=== PATIENT | male | born 1945 | race Caucasian/White ===

== ENCOUNTER → 2016-12-21 | Outpatient (CLI) | payer BC, OTHER ==
[~2016-12-21] MED LIST: ASPCH81 PO; AZIT250T PO; LISI-725 PO; MILK300C PO; MISCCAP80 PO; OPTIRAY 320 IV PRN; PSYL55.43 PO
--- NOTE | 2016-12-21 09:24 | DIAGNOSTIC IMAGING REPORT ---
Study: Electronically signed by: Seth Gagnon M.D. 12/21/2016 9:22 AM Dictated Date/Time: 12/21/2016 9:12 AM SOFT TISSUE NECK WITH. CT. CLINICAL HISTORY: LYMPHOMA lymphoma TECHNIQUE: Transaxial acquisition with intravenous contrast enhancement. Multi axial reformatted images. COMPARISON STUDY: PET CT scan dated 04/15/2015 FINDINGS: Findings consistent with recurrent adenopathy. Major salivary glands including parotid glands appear unremarkable. A service marker is placed over a clinically palpable nodule in the left soft tissue neck region. Deep to this location is a 2 cm node. Several smaller nodes including progressive nodes in the left substance moderate mastoid region are present. Additional nodes measure up to 1.4 cm. Major salivary glands remain unremarkable. Several smaller low cervical nodes are present. These are also somewhat progressive compared to the prior exam and measures to 1.4 cm in the left supraclavicular region. Bulky adenopathy in the right cervical chain is not identified. Major salivary glands again are unremarkable. Glottic and subglottic regions are unremarkable. Study: CT soft tissue neck. IMPRESSION: 1. Findings consistent with recurrent or progressive adenopathy of the left cervical chain. 2. Deep to the area of clinical palpable palpable nodularity is a 2 cm lymph node. 3. Progressive adenopathy is seen throughout the remainder of the left cervical chain. 4. No significant right cervical adenopathy.
== END | disposition home or self-care (01) ==
LOC: C.CTS 08:47
PROVIDERS: ATTEND Internal Medicine Hematology & Oncology
DX: C82.23 Follicular lymphoma grade III, unspecified, intra-abdominal lymph nodes (principal)

== ENCOUNTER → 2017-01-11 | Outpatient (CLI) | payer BC, OTHER ==
[~2017-01-11] MED LIST changes: -OPTIRAY 320 IV PRN
--- NOTE | 2017-01-11 10:07 | DIAGNOSTIC IMAGING REPORT ---
PET/CT SKULL-THIGH HISTORY:71 years Malepatient presents with follicular non-Hodgkin's lymphoma. This is a follow-up study with prior examination dated 04/15/2015 which showed no evidence for active disease. Recent CT soft tissue neck showed new cervical chain adenopathy suggesting recurrent or progressive disease. COMPARISON: PET CT 04/15/2015 TECHNIQUE: The patient was injected with 154 mCi of F-18 fluorodeoxyglucose (FDG) and an emission scan was performed from the skull vertex to the toes. Noncontrast CT was performed for attenuation correction and anatomic localization. The blood glucose level was 89 mg/dl. FINDINGS: HEAD AND NECK: There are multiple enlarged cervical chain lymph nodes again seen, left greater than right. Several of these nodes are FDG avid. For example, a large level 2 lymph node on the left measuring 2.3 x 1.7 cm on axial image 43 has SUV max of 12.4. An additional level 2 lymph node at the same level measures 1.7 x 1.2 cm with SUV max of 9.5. There are additional smaller bilateral level 2, 3 and 5 lymph nodes which are also hypermetabolic but not significantly enlarged by CT size criteria. CHEST: Large conglomerate right hilar adenopathy measuring up to approximately 2.8 x 1.7 cm on image 102 of the axial series is markedly hypermetabolic with SUV max of 8.8. Mildly enlarged subcarinal lymph node measuring 1.4 x 1.0 cm demonstrates SUV max of 3.7. Nonspecific 9 x 5 mm right axillary lymph node which demonstrates uptake slightly above that of blood pool with SUV max of 1.9 is seen on image 97 of the axial series. Periesophageal lymph nodes are seen measuring up to 1.4 x 2.6 cm with SUV max of 5.0 cm image 116 of the axial series. ABDOMEN AND PELVIS: Mildly large lymph nodes adjacent to the celiac trunk are seen measuring up to 1.6 x 1.1 cm with SUV max of 5.9. Bulky retroperitoneal and mesenteric adenopathy is also noted with SUV max of over 10. Index infrarenal aortic lumbar adenopathy is seen measuring up to 3.6 x 1.7 cm on image 179 of the axial series. Pelvic sidewall and iliac chain adenopathy is also hypermetabolic. SUV max of the spleen measures 3.6 which is greater than that of the liver at 2.7 which suggests lymphomatous involvement. MUSCULOSKELETAL SYSTEM AND EXTREMITIES: There is a physiologic distribution of activity within the bone marrow, with no hypermetabolic foci. ADDITIONAL CT FINDINGS: The appendix appears normal. Noninflamed colonic diverticuli are seen. There is moderate degree of atherosclerotic plaquing of the aorta. Multilevel degenerative changes are seen throughout the spine. IMPRESSION: 1. Extensive bulky hypermetabolic adenopathy throughout the neck, chest, abdomen and pelvis compatible with progressive disease. 2. Increased FDG activity throughout the spleen is slightly above that of activity within the liver suggesting lymphomatous involvement. 3. No osseous disease identified. 4. Additional incidental CT findings as above. The above report was generated using voice recognition software. It may contain grammatical, syntax or spelling errors. Electronically signed by: Aaron Arenas M.D. 01/11/2017 10:05 AM Dictated Date/Time: 01/11/2017 9:43 AM
== END | disposition home or self-care (01) ==
LOC: C.PET 06:45
PROVIDERS: ATTEND Internal Medicine Hematology & Oncology
DX: C82.23 Follicular lymphoma grade III, unspecified, intra-abdominal lymph nodes (principal); I70.0 Atherosclerosis of aorta

== ENCOUNTER 2017-01-28 08:23 | Emergency (ER) | payer BC, OTHER ==
[~2017-01-28] VITALS: Ht 180.3 cm; Wt 97.7 kg
[~2017-01-28 08:23] MED LIST changes: -AZIT250T PO; -MILK300C PO; -MISCCAP80 PO
[2017-01-28 08:28] VITALS: TEMP 36.8; Ht 180.3 cm; Wt 97.7 kg
[2017-01-28] MEDS ORDERED: XYLOCAINE 1%/SOD BICARB 20 ML VIAL INFIL ONE (08:33)
[2017-01-28] MEDS ORDERED: DIPHTHERIA/TETANUS/PERTUSSIS 0.5 ML SYR/VIAL IM. ONE (08:45)
--- NOTE | 2017-01-28 09:00 | EMERGENCY ROOM VISIT NOTE ---
ED Visit Note First contact with patient: 08:30 CHIEF COMPLAINT: Left index Finger laceration HISTORY OF PRESENT ILLNESS: This patient cut the left index finger on on a tin can last evening at approximately 8 PM. The patient states he washed out the wound and bandaged it. When he took the bandage off this morning it was still bleeding therefore he came to the emergency room. The patient denies any numbness and tingling in the finger. He states he is able to bend the finger. The patient is just on a baby aspirin daily but denies any other blood thinners. The patient tetanus status is unknown. REVIEW OF SYSTEMS: 6 system review was performed and was negative unless stated otherwise in history of present illness. PMH: The patient is healthy; lymphoma SOCIAL HISTORY: Patient lives with his .. PHYSICAL EXAM: Vital Signs: Were reviewed Reviewed Nurse's notes. GENERAL: 71- year-old white male appears in no acute distress. MENTAL Status: Alert and oriented 3. LEFT INDEX FINGER: There is a 1.5 cm laceration at the base of the proximal phalanx. This is on the palmar aspect. There is active bleeding. The edges gape apart with traction. There is no foreign material in the wound and it looks clean. There is no bleeding. No deep structures such as tendons or nerves are seen in the base of the wound. Extension of the finger is full and strong. EMERGENCY DEPARTMENT COURSE: The patient was given Adacel. The patient's EMR medication list were reviewed. Wound Repair: Complexity: Basic. Verbal consent was obtained after the risks and benefits were explained, including but not limited to bleeding, scarring, infection, pain, and bone/joint /nerve damage. The skin was prepped with betadine and a sterile field set. The wound was anesthetized with 1.0 ml of 1% buffered lidocaine. With direct pressure the bleeding subsided. Copious irrigation was performed using sterile saline. The wound was explored for foreign bodies and none found. Debridement was not performed. The wound edges were approximated using 4-0 Ethilon with 3 simple interrupted sutures. Hemostasis and excellent approximation was achieved. Antibacterial ointment and a sterile dressing applied. Detailed wound care instructions and signs and symptoms of infection reviewed with the patient. No complications and the patient tolerated the procedure well. DIAGNOSIS: 1.5 cm left hand laceration DISCHARGE INSTRUCTIONS & TREATMENT: Keep wound clean and dry. No water on the area for 12-24 hrs then no soaking until sutures removed. Do not allow any crusting or dried blood to accumulate on sutures. If this occurs, use a 1:1 solution of hydrogen peroxide/water on a Q-tip to clean the wound. Use an antibiotic ointment for 3-4 days, then let wound dry. Suture removal in 8 days. Follow up sooner for any signs of infection (increasing redness, swelling , drainage). Ice and elevate for swelling and pain. Tylenol 650 mg every 6 hrs for pain. Problem List Medical Problems: (1) DLBCL (diffuse large B cell lymphoma) Status: Chronic (2) Hypogammaglobulinemia Status: Chronic (3) Screening PSA (prostate specific antigen) Status: Chronic Current/Historical Medications Scheduled Aspirin (Aspirin Tab-Chewable *), 1 TAB PO DAILY Lisinopril (Zestril), 20 MG PO DAILY Psyllium (Metamucil Powder), 1 PACK PO DAILY Allergies Coded Allergies: No Known Allergies (Verified , `, 01/28/17) Vital Signs Date Time Temp Pulse Resp B/P (MAP) Pulse Ox O2 Delivery O2 Flow Rate FiO2 01/28/17 08:28 36.8 80 18 163/87 96 Room Air Medications Administered Medications (Trade) Dose Ordered Sig/Michael Route Start Time Stop Time Status Last Admin Dose Admin Lidocaine HCl (Buffered Lidocaine 1% Inj) 20 ml STK-MED ONCE INFIL 01/28/17 08:33 01/28/17 08:34 DC 01/28/17 08:33 20 ML Diphtheria/ Pertussis/Tetanus Vacc (Adacel Inj) 0.5 ml ONCE ONCE IM. 01/28/17 08:45 01/28/17 08:46 DC 01/28/17 08:44 0.5 ML Departure Information Referrals Juan Plunkett D.O. (PCP) Patient Instructions My [facility]
[2017-01-28] MEDS ORDERED: AZIT250T PO (09:11)
[2017-01-28] MEDS ORDERED: MISCCAP80 PO (09:12)
[2017-01-28] MEDS ORDERED: MILK300C PO (09:13)
[2017-01-28 09:22] VITALS: BP 140/80; PULSE 63; O2SAT 96
== END 2017-01-28 09:22 | disposition home or self-care (01) ==
LOC: C.EDB 08:24 → C.EDA 09:22
DX: S61.211A Laceration without foreign body of left index finger without damage to nail, initial encounter (principal); W26.8XXA Contact with other sharp object(s), not elsewhere classified, initial encounter; Z85.72 Personal history of non-Hodgkin lymphomas; D80.1 Nonfamilial hypogammaglobulinemia; Z79.82 Long term (current) use of aspirin; Z79.899 Other long term (current) drug therapy

== ENCOUNTER → 2017-07-21 | Outpatient (CLI) | payer OTHER, BC ==
[~2017-07-21] MED LIST changes: +AZIT250T PO; +MILK300C PO; +MISCCAP80 PO; +OPTIRAY 320 IV PRN
--- NOTE | 2017-07-21 11:18 | DIAGNOSTIC IMAGING REPORT ---
CHEST CT WITH CONTRAST CT DOSE: HISTORY: LYMPHOMA TECHNIQUE: Multiaxial CT images of the chest were performed following the intravenous administration of contrast. A dose lowering technique was utilized adhering to the principles of ALARA. COMPARISON: PET CT 01/11/2017. FINDINGS: The mediastinal, hilar, and axillary lymphadenopathy has essentially resolved in the interval. There are few subcentimeter distal periesophageal lymph nodes remaining the largest measuring 5 mm. And 1.4 cm hypodense lesion within the right hepatic lobe. This is likely benign. Hepatic steatosis. The spleen and adrenal glands are unremarkable. The mediastinal vascular structures are within normal limits. No pleural or pericardial effusions. No suspicious lytic or blastic osseous lesions. Small focal density within the base of the lingula likely represents atelectasis or scarring. This remains unchanged compared to the 2010 examination. Stable benign 4 mm nodule within the right middle lobe on image 154. No new focal lung consolidations to suggest pneumonia. IMPRESSION: The mediastinal, hilar, and axillary lymphadenopathy has essentially resolved in the interval. Electronically signed by: Pedrito Niño M.D. 07/21/2017 11:16 AM Dictated Date/Time: 07/21/2017 11:02 AM
--- NOTE | 2017-07-21 11:20 | DIAGNOSTIC IMAGING REPORT ---
SOFT TISSUE NECK WITH CLINICAL HISTORY: LYMPHOMA TECHNIQUE: Transaxial acquisition. Multi axial reformatted images. COMPARISON STUDY: 12/21/2016 FINDINGS: Considerable improvement compared to the prior study. The bulk of the left cervical adenopathy is either resolved in are considerably. Reduced in terms of size. Previously described 2 cm palpable nodule has diminished to 7 mm. A substernocleidomastoid nodule measuring worse 1.4 cm on the prior study has diminished to 5 mm. Current study shows no significant cervical adenopathy with all nodes identified less than 7 mm. Major vascular structures the neck including parotid and submandibular glands are unremarkable. There is no significant right-sided cervical adenopathy. IMPRESSION: 1. Considerable improvement in this examination compared to the prior study. 2. Bulky adenopathy of the left cervical chain has resolved completely or diminished in size by 75% or more. 3. Current examination shows no significant residual nodularity /adenopathy. The above report was generated using voice recognition software. It may contain grammatical, syntax or spelling errors. Electronically signed by: Seth Gagnon M.D. 07/21/2017 11:18 AM Dictated Date/Time: 07/21/2017 11:11 AM
== END | disposition home or self-care (01) ==
LOC: C.CTS 10:11
PROVIDERS: ATTEND Internal Medicine Hematology & Oncology
DX: C82.23 Follicular lymphoma grade III, unspecified, intra-abdominal lymph nodes (principal)

== ENCOUNTER → 2017-08-30 | Outpatient (CLI) | payer OTHER, BC ==
[~2017-08-30] MED LIST changes: -OPTIRAY 320 IV PRN
--- NOTE | 2017-08-30 12:36 | DIAGNOSTIC IMAGING REPORT ---
CHEST 2 VIEWS ROUTINE CLINICAL HISTORY: R05 COUGH COMPARISON STUDY: 05/07/2016 FINDINGS: The cardiac and mediastinal contours are normal. There is no evidence of focal pulmonary consolidation. There is no evidence of failure. No pleural effusions are visualized.[ There is stable linear scar/atelectatic change at the left base. IMPRESSION: No active disease in the chest. Electronically signed by: Zi Monzon M.D. 08/30/2017 12:35 PM Dictated Date/Time: 08/30/2017 12:34 PM
[2017-08-30 13:17] LABS: BASO % 0.4 %; BASO ABS # 0.02 K/uL (0-0.2); EOS % 4.3 %; EOS ABS # 0.24 K/uL (0-0.5); HEMATOCRIT 42.3 % (42-52); HEMOGLOBIN 15.1 g/dL (14.0-18.0); IG# 0.04 K/uL (0.00-0.02); LYMPH % 4.2 %; LYMPH ABS # 0.23 K/uL (1.2-3.4); MEAN CELL VOLUME 89.1 fL (80-100); MEAN CORPUSCULAR HEMOGLOBIN 31.8 pg (25-34); MEAN CORPUSCULAR HGB CONC 35.7 g/dl (32-36); MEAN PLATELET VOLUME 9.1 fL (7.4-10.4); MONO % 11.2 %; MONO ABS # 0.62 K/uL (0.11-0.59); NEUT % 79.2 %; NEUT ABS # 4.38 K/uL (1.4-6.5); PLATELET COUNT 194 K/uL (130-400); RED CELL DISTRIBUTION WIDTH CV 13.2 % (11.5-14.5); RED CELL DISTRIBUTION WIDTH SD 42.8 fL (36.4-46.3); WHITE BLOOD COUNT 5.53 K/uL (4.8-10.8)
[2017-08-30 13:52] LABS: BLOOD UREA NITROGEN 11 mg/dl (7-18); CALCIUM 9.1 mg/dl (8.5-10.1); CARBON DIOXIDE 26 mmol/L (21-32); CREATININE 1.13 mg/dl (0.60-1.40); GLUCOSE 113 mg/dl (70-99); POTASSIUM 3.8 mmol/L (3.5-5.1); SODIUM 136 mmol/L (136-145)
[2017-08-30 14:04] LABS: INFLUENZA A PCR Neg for Influ A (NEG); INFLUENZA B PCR Neg for Influ B (NEG)
== END | disposition home or self-care (01) ==
LOC: C.RAD1850 12:21
PROVIDERS: ATTEND Physician Assistant
DX: R05 Cough (principal)

== ENCOUNTER → 2017-08-30 | Outpatient (CLI) | payer OTHER, BC ==
[~2017-08-30] MED LIST changes: +OPTIRAY 320 IV PRN
--- NOTE | 2017-08-30 16:54 | DIAGNOSTIC IMAGING REPORT ---
CT ANGIOGRAM OF THE CHEST CLINICAL HISTORY: Dyspnea. COMPARISON STUDY: Chest CT scans dated 07/21/2017 and 06/24/2010. Chest x-ray dated 08/30/2017. TECHNIQUE: Following the IV administration of 97 cc of Optiray 320, CT angiogram of the chest was performed from the upper abdomen to the thoracic inlet utilizing the pulmonary embolus protocol. Images are reviewed in the axial, sagittal, and coronal planes. 3-D MIPS images are created and assessed. IV contrast was administered without complication. A dose lowering technique was utilized adhering to the principles of ALARA. CT DOSE: 556.71 mGy.cm FINDINGS: Thyroid: Imaged portions of the thyroid gland are normal in size and attenuation. Thoracic aorta: There is mild atherosclerotic calcification of the thoracic aorta, which is normal in caliber and demonstrates standard 3-vessel arch anatomy. No dissection is seen. Pulmonary vasculature: The pulmonary trunk is normal in caliber. There are no filling defects identified in main, lobar, or segmental pulmonary branches to suggest pulmonary embolus. Heart: The heart is normal in size and configuration, and without pericardial effusion. Lungs and pleural spaces: There is no lobar consolidation or pleural effusion. There are numerous foci of tree-in-bud nodularity scattered throughout both lungs with minimal associated groundglass change. The appearance is consistent with an infectious/inflammatory pneumonitis. The trachea and central airways are clear. A 4 mm right middle lobe pulmonary nodule is seen on image #96. This is unchanged dating back to 2009 and of doubtful significance. Mediastinum: There is no mediastinal lymphadenopathy. Chloe: Clear. Axillae: There is no axillary lymphadenopathy. Upper abdomen: There is a small hiatal hernia. Partially visualized upper abdominal viscera is within normal limits. Skeletal structures: The skeletal structures are osteopenic. No lytic or blastic bony lesions are seen. IMPRESSION: 1. There is no evidence of pulmonary embolus in the main, lobar, or segmental pulmonary arteries. 2. There are numerous foci of tree-in-bud nodularity scattered throughout both lungs with faint groundglass change. This is new from 07/21/2017 and likely represents an infectious/inflammatory pneumonitis. Clinical correlation will be required. 3-4 month follow-up chest CT is recommended to document resolution. 3. No lymphadenopathy is seen in the thorax. 4. Additional findings as above. Electronically signed by: Blaine Elaine M.D. 08/30/2017 4:53 PM Dictated Date/Time: 08/30/2017 4:47 PM
== END | disposition home or self-care (01) ==
LOC: C.CTS 16:15
PROVIDERS: ATTEND Physician Assistant
DX: R91.8 Other nonspecific abnormal finding of lung field (principal); R06.02 Shortness of breath

== ENCOUNTER → 2017-09-10 | Outpatient (CLI) | payer OTHER, BC ==
[~2017-09-10] MED LIST changes: -OPTIRAY 320 IV PRN
== END | disposition home or self-care (01) ==
LOC: C.LAB1850 11:31
PROVIDERS: ATTEND Physician Assistant
DX: C85.90 Non-Hodgkin lymphoma, unspecified, unspecified site (principal)

== ENCOUNTER 2017-09-24 13:49 | Emergency (ER) | payer OTHER, BC ==
[~2017-09-24] VITALS: Ht 177.8 cm; Wt 97.0 kg
[2017-09-24 13:53] VITALS: TEMP 36.8; Ht 177.8 cm; Wt 97.0 kg
[2017-09-24] MEDS ORDERED: SODIUM CHLORIDE 0.9% 1000ML 1,000 ML IV STA (14:07)
--- NOTE | 2017-09-24 14:15 | EMERGENCY ROOM VISIT NOTE ---
History Report prepared by Omar: Renee Patterson Under the Supervision of: Dr. Ricardo Davison M.D. 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 He states he recently started waking up around 0200 in the morning with chills and a fever of around 100 along with a persistent and dry cough. He notes the fever goes down to a normal temperature around 1200 typically. He notes this morning he woke up with an abnormally low temperature of 97.5. The patient reports he has had 6 months of chemotherapy for Non-Hodgkin lymphoma. Dr. Salinas Dolan, [facility], is his chemotherapy doctor. He notes the day after his last chemo treatment, he developed bronchitis. His doctor, Tegan Hand with [facility]mon[facility], prescribed him 2 rounds of abx. The first round was Augmentin and steroids and the second round added doxycycline and steroids. 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 A total of ten systems were reviewed and were otherwise negative. Past Medical & Surgical Medical Problems: (1) DLBCL (diffuse large B cell lymphoma) (2) Hypogammaglobulinemia (3) Screening PSA (prostate specific antigen) Family History No pertinent family history Social History Smoking Status: Never Smoker Marital Status: Occupation Status: employed Current/Historical Medications Scheduled Aspirin (Aspirin Ec), 81 MG PO DAILY Azithromycin (Zithromax), 250 MG PO QAM Budesonide/Formoterol Fumarate (Symbicort 160/4.5 Inhaler ), 2 PUFFS INH BID Cetirizine (Zyrtec), 10 MG PO DAILY Fluticasone Propionate (Nasal) (Flonase Allergy Relief), 2 SPRAYS KAREEM DAILY Ibuprofen Tab (Advil), 400-600 MG PO Q6H Lisinopril (Zestril), 20 MG PO QAM Moxifloxacin Hcl (Avelox), 1 TAB PO DAILY Probiotic Product (Probiotic), 1 CAP PO QAM Scheduled PRN Benzonatate (Tessalon Perles), 100 MG PO TID PRN for Cough Dextromethorphan-Guaifenesin (Mucinex Dm), 1 TAB PO Q12 PRN for Nasal Congestion Allergies Coded Allergies: No Known Allergies (Verified , `, 09/24/17) Physical Exam Vital Signs Date Time Temp Pulse Resp B/P (MAP) Pulse Ox O2 Delivery O2 Flow Rate FiO2 09/24/17 17:13 88 18 128/68 94 09/24/17 15:55 80 18 133/81 96 Room Air 09/24/17 13:53 36.8 113 18 150/86 94 Room Air Physical Exam Physical Exam GENERAL: He is oriented to person, place, and time. he appears well-developed and well-nourished. He does not appear distressed. ____ HENT: Exam performed. Head: Normocephalic and atraumatic. Right Ear: External ear normal. No mastoid tenderness. Left Ear: External ear normal. No mastoid tenderness. Mouth/Throat: The oropharynx is clear and moist. No trismus in the jaw. No dental abscesses or uvula swelling. No oropharyngeal exudate or tonsillar abscesses. ____ EYES: Conjunctivae and EOM are normal. Pupils are equal, round, and reactive to light. Right eye exhibits no discharge. Left eye exhibits no discharge. No scleral icterus. ____ NECK: Normal range of motion. Neck supple. No JVD present. No spinous process tenderness present. No carotid bruit present. No rigidity. No tracheal deviation and normal range of motion present. No Brudzinski's sign and no Kernig 's sign noted. ____ CV: Normal rate, regular rhythm, normal heart sounds and intact distal pulses. There is no peripheral edema. Palpable radial pulses bue. ____ PULM/CHEST: Effort normal and breath sounds normal. No respiratory distress. No stridor. He has no wheezes. he has no rales. Chest Wall: He exhibits no tenderness. ____ ABD: The abdomen is soft. Bowel sounds are normal. He has no distension. No mass is present. There is no tenderness. There is no rebound, no guarding, no Lama's sign and no tenderness at McBurney's point. Rovsig negative MUSC/SKEL: Normal range of motion. There is no peripheral edema, tenderness or deformity. LYMPH: No cervical adenopathy. ____ NEURO: He is alert and oriented to person, place, and time. He has normal strength. No cranial nerve deficit or sensory deficit. Coordination and gait normal. GCS eye subscore is 4. GCS verbal subscore is 5. GCS motor subscore is 6. Cerebellar tests wnl. ____ SKIN: Skin is warm and dry. He is not diaphoretic. ____ PSYCH: He has a normal mood and affect. His behavior is normal. Judgment and thought content normal. ____ Medical Decision & Procedures ER Provider Diagnostic Interpretation: Radiology results as stated below per my review and radiologist interpretation: CHEST 2 VIEWS ROUTINE CLINICAL HISTORY: 72 years-old Male presenting with chills fever cough r/o pneumonia on chemo. TECHNIQUE: PA and lateral views of the chest were obtained. COMPARISON: 08/30/2017. FINDINGS: Atherosclerosis of the aortic arch. Cardiac silhouette normal in size. Prominent lung markings. No focal opacity. No pleural effusion or pneumothorax. Osseous structures normal. Upper abdomen normal. IMPRESSION: 1. Nonspecific prominence of lung markings. No focal infiltrate to suggest pneumonia. Electronically signed by: Conor Cunningham M.D. 09/24/2017 3:21 PM Dictated Date/Time: 09/24/2017 3:19 PM Laboratory Results 09/24/17 14:35 Red Blood Count 4.58, Mean Corpuscular Volume 87.3, Mean Corpuscular Hemoglobin 30.8, Mean Corpuscular Hemoglobin Concent 35.3, Mean Platelet Volume 9.2, Neutrophils (%) (Auto) 69.6, Lymphocytes (%) (Auto) 18.4, Monocytes (%) (Auto) 9.3, Eosinophils (%) (Auto) 1.5, Basophils (%) (Auto) 0.4, Neutrophils # (Auto) 3.60, Lymphocytes # (Auto) 0.95, Monocytes # (Auto) 0.48, Eosinophils # (Auto) 0.08, Basophils # (Auto) 0.02 09/24/17 14:35 Test 09/24/17 14:35 09/24/17 15:05 White Blood Count 5.17 K/uL (4.8-10.8) Red Blood Count 4.58 M/uL (4.7-6.1) Hemoglobin 14.1 g/dL (14.0-18.0) Hematocrit 40.0 % (42-52) Mean Corpuscular Volume 87.3 fL (80-100) Mean Corpuscular Hemoglobin 30.8 pg (25-34) Mean Corpuscular Hemoglobin Concent 35.3 g/dl (32-36) Platelet Count 177 K/uL (130-400) Mean Platelet Volume 9.2 fL (7.4-10.4) Neutrophils (%) (Auto) 69.6 % Lymphocytes (%) (Auto) 18.4 % Monocytes (%) (Auto) 9.3 % Eosinophils (%) (Auto) 1.5 % Basophils (%) (Auto) 0.4 % Neutrophils # (Auto) 3.60 K/uL (1.4-6.5) Lymphocytes # (Auto) 0.95 K/uL (1.2-3.4) Monocytes # (Auto) 0.48 K/uL (0.11-0.59) Eosinophils # (Auto) 0.08 K/uL (0-0.5) Basophils # (Auto) 0.02 K/uL (0-0.2) RDW Standard Deviation 41.7 fL (36.4-46.3) RDW Coefficient of Variation 13.0 % (11.5-14.5) Immature Granulocyte % (Auto) 0.8 % Immature Granulocyte # (Auto) 0.04 K/uL (0.00-0.02) Anion Gap 7.0 mmol/L (3-11) Est Creatinine Clear Calc Drug Dose 76.9 ml/min Estimated GFR () 86.2 Estimated GFR (Non- 74.3 BUN/Creatinine Ratio 16.4 (10-20) Lactic Acid Level 0.9 mmol/L (0.4-2.0) Calcium Level 9.0 mg/dl (8.5-10.1) Total Bilirubin 0.8 mg/dl (0.2-1) Direct Bilirubin 0.2 mg/dl (0-0.2) Aspartate Amino Transf (AST/SGOT) 29 U/L (15-37) Alanine Aminotransferase (ALT/SGPT) 32 U/L (12-78) Alkaline Phosphatase 80 U/L (45-117) Total Protein 6.6 gm/dl (6.4-8.2) Albumin 3.4 gm/dl (3.4-5.0) Lipase 102 U/L (73-393) Influenza Type A Antigen Neg for Influ A (NEG) Influenza Type B Antigen Neg for Influ B (NEG) Laboratory results reviewed by me Medications Administered Medications (Trade) Dose Ordered Sig/Michael Route Start Time Stop Time Status Last Admin Dose Admin Sodium Chloride 1,000 ml @ 999 mls/hr Q1H1M STAT IV 09/24/17 14:07 09/24/17 15:07 DC 09/24/17 14:40 999 MLS/HR ECG Per My Interpretation Indication: other (bronchitis) Rate (beats per minute): 105 Rhythm: sinus tachycardia Findings: other (pr, qr and qrs intervals within normal limits, left ventricular hypertrophy present, no st elevation or depression ) ED Course 1406: The patient was evaluated in room B3. A complete history and physical exam was performed. EMR reviewed. Pt had a chest x ray and CTA of chest on August 2017 and they were both negative. 1407: Sodium Chloride 1000 ml @ 999 mls/hr IV 1628: Vital signs stable. Labs and imaging within normal limits. Discussed with [facility] pulmonology cardiology nurse practitioner who agreed patient could be started on Tessalon Perles and Avelox given his ongoing chemotherapy treatments. Plan of care discussed with patient and questions answered. The patient was given both verbal and printed discharge instructions. The patient verbalized understanding and ability to comply. The patient is to seek outpatient follow up as noted in the discharge instructions. The patient verbalized understanding and ability to comply. The patient is discharged in stable condition. The patient was instructed to return for worsening symptoms. Medical Decision Vital signs stable. Labs and imaging within normal limits. Discussed with [facility] pulmonology cardiology nurse practitioner who agreed patient could be started on Tessalon Perles and Avelox given his ongoing chemotherapy treatments. Plan of care discussed with patient and questions answered. The patient was given both verbal and printed discharge instructions. The patient verbalized understanding and ability to comply. The patient is to seek outpatient follow up as noted in the discharge instructions. The patient verbalized understanding and ability to comply. The patient is discharged in stable condition. The patient was instructed to return for worsening symptoms. Medication Reconcilliation Current Medication List: was personally reviewed by me Blood Pressure Screening Patient's blood pressure: Elevated blood pressure Consults Time Called: 162 Consulting Physician: Dr. Heath Returned Call: [phone] He agreed to try a different treatment method for the patient even though he is on chemotherapy. Impression Primary Impression: Cough Additional Impression: Bronchitis Scribe Attestation The scribe's documentation has been prepared under my direction and personally reviewed by me in its entirety. I confirm that the note above accurately reflects all work, treatment, procedures, and medical decision making performed by me. The chart was completed utilizing [employer] voice recognition software. Grammatical errors, random word insertions, pronoun errors, and incomplete sentences are an occasional consequence of this system due to software limitations, ambient noise, and hardware issues. Any formal questions or concerns about the content, text, or information contained within the body of this dictation should be directly addressed to the physician for clarification. Departure Information Dispostion Home / Self-Care Prescriptions Benzonatate (TESSALON PERLES) 100 Mg Cap 100 MG PO TID Y for Cough, #30 CAP Prov: Ricardo Davison M.D. 09/24/17 Moxifloxacin Hcl (AVELOX) 400 Mg Tab 1 TAB PO DAILY for 7 Days, #7 TAB Prov: Ricardo Davison M.D. 09/24/17 Referrals Tegan Arias PA-C (PCP) Forms HOME CARE DOCUMENTATION FORM, IMPORTANT VISIT INFORMATION Patient Instructions [facility] Problem Qualifiers
[2017-09-24 14:58] LABS: BASO % 0.4 %; BASO ABS # 0.02 K/uL (0-0.2); EOS % 1.5 %; EOS ABS # 0.08 K/uL (0-0.5); HEMOGLOBIN 14.1 g/dL (14.0-18.0); IG# 0.04 K/uL (0.00-0.02); LYMPH % 18.4 %; LYMPH ABS # 0.95 K/uL (1.2-3.4); MEAN CELL VOLUME 87.3 fL (80-100); MEAN CORPUSCULAR HEMOGLOBIN 30.8 pg (25-34); MEAN CORPUSCULAR HGB CONC 35.3 g/dl (32-36); MEAN PLATELET VOLUME 9.2 fL (7.4-10.4); MONO % 9.3 %; MONO ABS # 0.48 K/uL (0.11-0.59); NEUT % 69.6 %; PLATELET COUNT 177 K/uL (130-400); RED CELL DISTRIBUTION WIDTH SD 41.7 fL (36.4-46.3); WHITE BLOOD COUNT 5.17 K/uL (4.8-10.8)
[2017-09-24 15:11] LABS: ALBUMIN 3.4 gm/dl (3.4-5.0); POTASSIUM 3.8 mmol/L (3.5-5.1)
[2017-09-24 15:14] LABS: TOTAL PROTEIN 6.6 gm/dl (6.4-8.2)
--- NOTE | 2017-09-24 15:22 | DIAGNOSTIC IMAGING REPORT ---
CHEST 2 VIEWS ROUTINE CLINICAL HISTORY: 72 years-old Male presenting with chills fever cough r/o pneumonia on chemo. TECHNIQUE: PA and lateral views of the chest were obtained. COMPARISON: 08/30/2017. FINDINGS: Atherosclerosis of the aortic arch. Cardiac silhouette normal in size. Prominent lung markings. No focal opacity. No pleural effusion or pneumothorax. Osseous structures normal. Upper abdomen normal. IMPRESSION: 1. Nonspecific prominence of lung markings. No focal infiltrate to suggest pneumonia. Electronically signed by: Conor Cunningham M.D. 09/24/2017 3:21 PM Dictated Date/Time: 09/24/2017 3:19 PM
[2017-09-24] MEDS ORDERED: CETI10TA84 PO (16:00)
[2017-09-24] MEDS ORDERED: IBUP-103 PO (16:00)
[2017-09-24] MEDS ORDERED: DEXT30TA7 PO (16:00)
[2017-09-24] MEDS ORDERED: FLUT0.15 NAE (16:00)
[2017-09-24] MEDS ORDERED: ASPI81TA28 PO (16:00)
[2017-09-24] MEDS ORDERED: SYMIN160 INH (16:00)
[2017-09-24 16:01] LABS: INFLUENZA B ANTIGEN Neg for Influ B (NEG)
[2017-09-24] MEDS ORDERED: MOXI400T2 PO (17:00)
[2017-09-24] MEDS ORDERED: BENZ100C18 PO (17:01)
[2017-09-24 17:13] VITALS: BP 128/68; PULSE 88; O2SAT 94
== END 2017-09-24 17:15 | disposition home or self-care (01) ==
LOC: C.EDB 13:51
DX: J40 Bronchitis, not specified as acute or chronic (principal); R68.0 Hypothermia, not associated with low environmental temperature; C83.30 Diffuse large B-cell lymphoma, unspecified site; Z79.82 Long term (current) use of aspirin

== ENCOUNTER 2017-10-01 10:55 | Inpatient (IN) | payer OTHER, BC ==
[~2017-10-01] VITALS: Ht 177.8 cm; Wt 97.0 kg
[~2017-10-01 10:55] MED LIST changes: -ASPCH81 PO; +ASPI81TA28 PO; +BENZ100C18 PO; +CETI10TA84 PO; +DEXT30TA7 PO; +FLUT0.15 NAE; +IBUP-103 PO; -MILK300C PO; +MOXI400T2 PO; -PSYL55.43 PO; +SYMIN160 INH
[2017-10-01] MEDS ORDERED: SODIUM CHLORIDE 0.9% 500ML 500 ML IV STA (11:15)
[2017-10-01] MEDS ORDERED: FAMOTIDINE 20MG/5ML IV PUSH IV STA (11:17)
[2017-10-01] MEDS ORDERED: EpINEphrine INJ 1MG/ML AMP 1 MG/ML AMP IM STA (11:26)
[2017-10-01] MEDS ORDERED: OPTIRAY 320 IV PRN (11:30)
--- NOTE | 2017-10-01 11:41 | DIAGNOSTIC IMAGING REPORT ---
CHEST ONE VIEW PORTABLE CLINICAL HISTORY: Hypoxia. COMPARISON STUDY: Chest CT August 30, 2017 and chest radiograph September 24, 2017. FINDINGS: There is no pneumothorax or pleural effusion. Cardiomediastinal silhouette is normal. There is been interval development of bibasilar opacities and interstitial thickening. IMPRESSION: Interval development of bibasilar opacities and interstitial thickening which may reflect pneumonia or pulmonary edema. Electronically signed by: Fernie Arce M.D. 10/01/2017 11:40 AM Dictated Date/Time: 10/01/2017 11:38 AM
[2017-10-01 12:03] LABS: BASO % 0.1 %; BASO ABS # 0.01 K/uL (0-0.2); EOS % 1.2 %; EOS ABS # 0.08 K/uL (0-0.5); HEMATOCRIT 33.3 % (42-52); HEMOGLOBIN 11.9 g/dL (14.0-18.0); IG# 0.05 K/uL (0.00-0.02); LYMPH % 4.5 %; MEAN CELL VOLUME 85.8 fL (80-100); MEAN CORPUSCULAR HEMOGLOBIN 30.7 pg (25-34); MEAN CORPUSCULAR HGB CONC 35.7 g/dl (32-36); MONO % 6.1 %; MONO ABS # 0.41 K/uL (0.11-0.59); NEUT % 87.4 %; NEUT ABS # 5.86 K/uL (1.4-6.5); PLATELET COUNT 200 K/uL (130-400); RED CELL DISTRIBUTION WIDTH SD 40.7 fL (36.4-46.3); WHITE BLOOD COUNT 6.71 K/uL (4.8-10.8)
[2017-10-01] MEDS ORDERED: ALBU1.257 NEB (12:04)
[2017-10-01 12:12] LABS: ISTAT CREATININE 1.2 mg/dl (0.6-1.3); ISTAT IONIZED CALCIUM 1.16 mmol/l (1.12-1.32); ISTAT POTASSIUM 3.6 mEq/L (3.3-5.0)
[2017-10-01 12:13] LABS: INR 1.1 (0.9-1.1); PTT PATIENT 32.7 SECONDS (21.0-31.0)
[2017-10-01 12:21] LABS: CALCIUM 8.5 mg/dl (8.5-10.1); CREATININE 1.19 mg/dl (0.60-1.40); POTASSIUM 3.5 mmol/L (3.5-5.1)
--- NOTE | 2017-10-01 12:26 | DIAGNOSTIC IMAGING REPORT ---
CT ANGIOGRAPHY OF THE CHEST, PULMONARY EMBOLUS PROTOCOL CLINICAL HISTORY: Shortness of breath, tachycardia and hypoxia. History of non-Hodgkin's lymphoma. COMPARISON STUDY: Chest CT August 30, 2017 and chest radiograph performed earlier today. TECHNIQUE: Following IV administration of 93 mL of Optiray-320, helical axial images of the chest were obtained utilizing the pulmonary embolus protocol. Maximal intensity projections and sagittal and coronal reformats were viewed on an independent 3D workstation. IV contrast was administered without complication. A dose lowering technique was utilized adhering to the principles of ALARA. CT DOSE: 388.97 mGy.cm FINDINGS: No pulmonary emboli are identified although the segmental and subsegmental pulmonary arteries are suboptimally assessed due to respiratory motion. The heart is mildly enlarged. There is no pericardial effusion. No enlarged axillary, mediastinal or hilar lymph nodes are present. There is no pneumothorax or pleural effusion. The lungs are suboptimally assessed due to respiratory motion. Extensive multifocal groundglass opacities noted throughout the lungs. There is no cavitation. Central airways are patent. Bony thorax and upper abdomen are unremarkable. IMPRESSION: 1. No pulmonary emboli identified although segmental and subsegmental pulmonary arteries suboptimally assessed due to respiratory motion. 2. Extensive multifocal groundglass opacities throughout the lungs which are nonspecific. Differential considerations include multifocal pneumonia, pulmonary edema and drug reaction. 3. Mild cardiomegaly. 4. No thoracic lymphadenopathy. Electronically signed by: Fernie Arce M.D. 10/01/2017 12:24 PM Dictated Date/Time: 10/01/2017 12:18 PM
[2017-10-01] MEDS ORDERED: PIPERACILLIN/TAZOBACTAM 4.5 GM/100ML D5W IV STA (13:22)
[2017-10-01] MEDS ORDERED: VANCOMYCIN IV 1,000 MG in SODIUM CHLORIDE 0.9% 250ML 250 ML IV STA (13:22)
[2017-10-01] MEDS ORDERED: VANCOMYCIN CONSULT ACTIVE PRN (13:30)
[2017-10-01] MEDS ORDERED: ZOLPIDEM TARTRATE 5 MG TAB PO PRN (14:45)
[2017-10-01] MEDS ORDERED: ALUMINUM/MAGNESIUM/SIMETH (MAALOX MAX) 30 ML UDC PO PRN (14:45)
[2017-10-01] MEDS ORDERED: MAGNESIUM HYDROXIDE SUSP 30 ML UDC PO PRN (14:45)
[2017-10-01] MEDS ORDERED: IBUPROFEN 200 MG TAB PO PRN (14:45)
[2017-10-01] MEDS ORDERED: ACETAMINOPHEN 325 MG TAB PO PRN (14:45)
[2017-10-01] MEDS ORDERED: MoRPHine SULFATE 2 MG/ML CARP IV PRN (14:45)
[2017-10-01] MEDS ORDERED: POLYETHYLENE (MIRALAX) 17 GM PACK PO PRN (14:45)
[2017-10-01] MEDS ORDERED: ONDANSETRON INJ 2 MG/ML 2 ML VIAL IV PRN (14:45)
--- NOTE | 2017-10-01 14:59 | History and Physical ---
History & Physical Date & Time of Service: Oct 01, 2017 at 14:58 Chief Complaint: Allergic Reaction Primary Care Physician: Juan Plunkett D.O. History of Present Illness Source: patient, hospital records 72 y/o M Hx HTN, TIA, follicular lymphoma - currently receiving chemotherapy, hypogammaglobulinemia as a result of chemo. 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 He developed rigors, SOB and was notably hypoxic with a saturation in the mid 70s. He was transported to the hospital therefore and treated for an acute reaction, receiving Epi and Benadryl. He had received Solumedrol and Demerol at the hematology office prior to arrival. The pt has improved with the aforementioned modalities and is comfortable with supplemental 02 at the time of admission. A CTA was obtained in the ER revealing extensive multifocal ground glass opacities which may represent pneumonia, pulmonary edema and drug reaction. He has not reported a productive cough or fever and does not have a history of CHF. Initial evaluation is not consistent with volume overload. Initial labs are notable for an elevated troponin and are otherwise unremarkable. He denies any acute CP, nausea/ vomiting or diaphoresis. Past Medical/Surgical History 1) Follicular lymphoma - stage III - currently receiving Bendamustine/ Rituximab. Initial diagnosis 2010 - treated with RCHOP. Recurrence in 2017 - bulky disease reported in neck, chest, abdomen. 2) Hypogammaglobulinemia due to chemotherapy - requires infusions at unspecified intervals. 3) TIA 2008 4) HTN 5) Diverticulitis 6) Chronic bronchitis - denies COPD history Family History No pertinent family history Social History Smoking Status: Former Smoker Marital Status: Occupational Status: employed Immunizations History of Influenza Vaccine: Yes History of Tetanus Vaccine?: Yes Tetanus Immunization Date: Apr 03, 2010 History of Pneumococcal: Yes History of Hepatitis B Vaccine: No Allergies Coded Allergies: POLLEN (Unverified Allergy, Unknown, environmental, 10/01/17) Home Medications Scheduled Albuterol Sulfate (Albuterol Sulfate), 1 VIAL NEB Q4 Aspirin (Aspirin Ec), 81 MG PO DAILY Azithromycin (Zithromax), 250 MG PO QAM Budesonide/Formoterol Fumarate (Symbicort 160/4.5 Inhaler ), 2 PUFFS INH BID Cetirizine (Zyrtec), 10 MG PO DAILY Fluticasone Propionate (Nasal) (Flonase Allergy Relief), 2 SPRAYS KAREEM DAILY Ibuprofen Tab (Advil), 400-600 MG PO Q6H Lisinopril (Zestril), 20 MG PO QAM Probiotic Product (Probiotic), 1 CAP PO QAM Scheduled PRN Benzonatate (Tessalon Perles), 100 MG PO TID PRN for Cough Dextromethorphan-Guaifenesin (Mucinex Dm), 1 TAB PO Q12 PRN for Nasal Congestion Review of Systems Constitutional: + chills, No fever, No sweats Eyes: No worsening of vision ENT: No hearing loss, No nasal symptoms Respiratory: + shortness of breath, + dyspnea on exertion, + dyspnea at rest, No cough, No sputum, No wheezing Cardiovascular: No chest pain, No orthopnea, No PND Abdomen: No pain, No nausea, No vomiting Musculoskeletal: No joint pain Genitourinary - Male: No hematuria, No dysuria Neurologic: No memory loss, No paralysis, No weakness Psychiatric: No depression symptoms Endocrine: No fatigue Hematologic / Lymphatic: No abnormal bleeding/bruising Integumentary: No rash Allergic / Immunologic: No environmental allergies Physical Exam Vital Signs Date Time Temp Pulse Resp B/P (MAP) Pulse Ox O2 Delivery O2 Flow Rate FiO2 10/01/17 14:53 95 10/01/17 14:00 37.0 101 20 130/83 97 Oxymask 10.0 10/01/17 13:30 118 20 123/88 97 Oxymask 10.0 10/01/17 13:00 109 127/64 94 Oxymask 10.0 10/01/17 12:33 116 31 120/68 92 Oxymask 10.0 10/01/17 12:03 119 26 128/54 94 Oxymask 10.0 10/01/17 11:30 94 Oxymask 10/01/17 11:07 136 10/01/17 11:05 92 Mask 10.0 10/01/17 11:00 130 36 103/76 74 Room Air General Appearance: WD/WN, no apparent distress Head: normocephalic Eyes: normal inspection ENT: normal ENT inspection, pharynx normal Neck: supple, no JVD Respiratory/Chest: chest non-tender, + pertinent finding (Mild crackles in R base - no wheezing) Cardiovascular: no edema, no gallop, + tachycardia Abdomen/GI: normal bowel sounds, non tender, soft Back: normal inspection Extremities/Musculoskelatal: normal inspection, no calf tenderness 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, no motor/sensory deficits, alert Skin: normal color Diagnostics Laboratory Results Results Past 24 Hours Test 10/01/17 11:42 10/01/17 12:01 10/01/17 12:07 Range/Units White Blood Count 6.71 4.8-10.8 K/uL Red Blood Count 3.88 4.7-6.1 M/uL Hemoglobin 11.9 14.0-18.0 g/dL Hematocrit 33.3 42-52 % Mean Corpuscular Volume 85.8 80-100 fL Mean Corpuscular Hemoglobin 30.7 25-34 pg Mean Corpuscular Hemoglobin Concent 35.7 32-36 g/dl Platelet Count 200 130-400 K/uL Mean Platelet Volume 9.0 7.4-10.4 fL Neutrophils (%) (Auto) 87.4 % Lymphocytes (%) (Auto) 4.5 % Monocytes (%) (Auto) 6.1 % Eosinophils (%) (Auto) 1.2 % Basophils (%) (Auto) 0.1 % Neutrophils # (Auto) 5.86 1.4-6.5 K/uL Lymphocytes # (Auto) 0.30 1.2-3.4 K/uL Monocytes # (Auto) 0.41 0.11-0.59 K/uL Eosinophils # (Auto) 0.08 0-0.5 K/uL Basophils # (Auto) 0.01 0-0.2 K/uL RDW Standard Deviation 40.7 36.4-46.3 fL RDW Coefficient of Variation 13.0 11.5-14.5 % Immature Granulocyte % (Auto) 0.7 % Immature Granulocyte # (Auto) 0.05 0.00-0.02 K/uL Prothrombin Time 11.7 9.0-12.0 SECONDS Prothromb Time International Ratio 1.1 0.9-1.1 Activated Partial Thromboplast Time 32.7 21.0-31.0 SECONDS Partial Thromboplastin Ratio 1.3 Sodium Level 135 136-145 mmol/L Potassium Level 3.5 3.5-5.1 mmol/L Chloride Level 105 98-107 mmol/L Carbon Dioxide Level 22 21-32 mmol/L Anion Gap 8.0 15.0 16-25 mmol/L Blood Urea Nitrogen 17 7-18 mg/dl Creatinine 1.19 0.60-1.40 mg/dl Est Creatinine Clear Calc Drug Dose 64.4 ml/min Estimated GFR () 69.8 Estimated GFR (Non- 60.2 BUN/Creatinine Ratio 14.2 10-20 Random Glucose 143 70-99 mg/dl Lactic Acid Level 1.5 0.4-2.0 mmol/L Calcium Level 8.5 8.5-10.1 mg/dl Troponin I 0.347 0-0.045 ng/ml Pro-B-Type Natriuretic Peptide 129 0-900 pg/ml Bedside Hemoglobin 10.9 14.0-18.0 g/dl Bedside Hematocrit 32 42-52 % Bedside Sodium 136 135-144 mEq/L Bedside Potassium 3.6 3.3-5.0 mEq/L Bedside Chloride 105 101-112 mEq/L Bedside Total CO2 21 24-31 mEq/l Bedside Blood Urea Nitrogen 15 7-18 mg/dl Bedside Creatinine 1.2 0.6-1.3 mg/dl Bedside Glucose (other) 152 70-99 mg/dl Bedside Ionized Calcium (Martita) 1.16 1.12-1.32 mmol/l Venous Blood pH 7.48 7.36-7.41 Venous Blood Partial Pressure CO2 31 38.0-50.0 mmHg Venous Blood Partial Pressure O2 50 mmHg Venous Blood HCO3 22 mmol/L Venous Blood Oxygen Saturation 86.2 % Venous Blood Base Excess -0.6 mEq/L Microbiology Results 10/01/17 Blood Culture, Ordered Pending 10/01/17 Blood Culture, Ordered Pending Diagnostic Radiology CTA: 1. No pulmonary emboli identified although segmental and subsegmental pulmonary arteries suboptimally assessed due to respiratory motion. 2. Extensive multifocal ground glass opacities throughout the lungs which are nonspecific. Differential considerations include multifocal pneumonia, pulmonary edema and drug reaction. 3. Mild cardiomegaly. 4. No thoracic lymphadenopathy. EKG Sinus tach, L axis - incomplete RBBB which is a new finding Impression Assessment and Plan 72 y/o M Hx HTN, TIA, follicular lymphoma - currently receiving chemotherapy, hypogammaglobulinemia as a result of chemo. 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 He developed rigors, SOB and was notably hypoxic with a saturation in the mid 70s. He was transported to the hospital therefore and treated for an acute reaction, receiving Epi and Benadryl. He had received Solumedrol and Demerol at the hematology office prior to arrival. The pt has improved with the aforementioned modalities and is comfortable with supplemental 02 at the time of admission. A CTA was obtained in the ER revealing extensive multifocal ground glass opacities which may represent pneumonia, pulmonary edema and drug reaction. He has not reported a productive cough or fever and does not have a history of CHF. Initial evaluation is not consistent with volume overload. Initial labs are notable for an elevated troponin and are otherwise unremarkable. He denies any acute CP, nausea/ vomiting or diaphoresis. 1) Acute hypoxia, rigors - without fever - likely a reaction to gammaglobulin infusion which he states he has had in the past. He will be assigned to telemetry. 02, Methylprednisolone, Benadryl, Famotidine provided at scheduled intervals. The pt will be evaluated by pulmonary due to his CT findings. He received an initial dose of Abx in the ER. We will hold additional for now. 2) Elevated trop - may have been due to demand owing to hypoxia. Trop will be trended, ASA provided, echo pending, cardio consult requested. 3) Lymphoma - will cont chemo as outpt 4) HTN - cont Lisinopril Full code - Heparin prophylaxis Total time for this admit including review of labs, meds, imaging, records - discussion with pt and ER attending - 40 min Resuscitation Status VTE Prophylaxis Will order VTE Prophylaxis: Yes
[2017-10-01] MEDS ORDERED: ALBUTEROL 0.083% NEBU SOLN 3 ML VIAL INH PRN (15:00)
[2017-10-01] MEDS ORDERED: DiphenhydrAMINE INJ 25 MG in SYRINGE 0 ML IV SCH (15:00)
[2017-10-01] MEDS ORDERED: VANCOMYCIN 1GM ED/ASU OMNICELL ONE (15:43)
[2017-10-01 16:36] VITALS: BP 121/71; PULSE 98; TEMP 36.4; O2SAT 95; Ht 177.8 cm; Wt 97.0 kg
--- NOTE | 2017-10-01 16:57 | EMERGENCY ROOM VISIT NOTE ---
History Report prepared by Omar: Jae Lutz Under the Supervision of: Dr. Ricardo Davison M.D. First contact with patient: 11:12 Chief Complaint: ALLERGIC REACTION Stated Complaint: ALLERGIC REACTION History of Present Illness The patient is a 72 year old male who presents to the Emergency Room with complaints of a generalized allergic reaction beginning shortly prior to arrival. His symptoms include generalized shaking and shortness of breath. The patient was receiving IVIG today at the [facility] center when his symptoms occurred. Per family, the patient has not received this type if IVIG before. He received IVIG treatment seven years ago without difficulty. The patient was given steroids for his reaction, but they did not appear to significantly improve the patient's symptoms. Per nursing staff, the patient's oxygen saturation was 74% on room air upon arrival. The patient denies chest pain. Source of History: patient, family Onset: Shortly prior to arrival Position: other (generalized) Quality: other (allergic reaction) Timing: constant Modifying Factors (Worsening): other (IVIG treatment) Associated Symptoms: + SOB, No chest pain Note: Positive: generalized shaking. Review of Systems See HPI for pertinent positives and negatives. A total of ten systems were reviewed and were otherwise negative. Past Medical & Surgical Medical Problems: (1) Anaphylaxis (2) DLBCL (diffuse large B cell lymphoma) (3) Hypogammaglobulinemia (4) Pneumonia (5) Screening PSA (prostate specific antigen) Family History No pertinent family history Social History Smoking Status: Never Smoker Marital Status: Occupation Status: employed Current/Historical Medications Scheduled Albuterol Sulfate (Albuterol Sulfate), 1 VIAL NEB Q4 Aspirin (Aspirin Ec), 81 MG PO DAILY Azithromycin (Zithromax), 250 MG PO QAM Budesonide/Formoterol Fumarate (Symbicort 160/4.5 Inhaler ), 2 PUFFS INH BID Cetirizine (Zyrtec), 10 MG PO DAILY Fluticasone Propionate (Nasal) (Flonase Allergy Relief), 2 SPRAYS KAREEM DAILY Ibuprofen Tab (Advil), 400-600 MG PO Q6H Lisinopril (Zestril), 20 MG PO QAM Probiotic Product (Probiotic), 1 CAP PO QAM Scheduled PRN Benzonatate (Tessalon Perles), 100 MG PO TID PRN for Cough Dextromethorphan-Guaifenesin (Mucinex Dm), 1 TAB PO Q12 PRN for Nasal Congestion Allergies Coded Allergies: POLLEN (Unverified Allergy, Unknown, environmental, 10/01/17) Physical Exam Vital Signs Date Time Temp Pulse Resp B/P (MAP) Pulse Ox O2 Delivery O2 Flow Rate FiO2 10/01/17 14:31 129/75 10/01/17 14:01 130/83 10/01/17 14:00 37.0 101 20 130/83 97 Oxymask 10.0 10/01/17 13:55 103 19 97 10/01/17 13:31 123/88 10/01/17 13:30 118 20 123/88 97 Oxymask 10.0 10/01/17 13:01 127/64 10/01/17 13:00 109 127/64 94 Oxymask 10.0 10/01/17 12:55 113 35 93 10/01/17 12:34 120/68 10/01/17 12:33 116 31 120/68 92 Oxymask 10.0 10/01/17 12:04 128/54 10/01/17 12:03 119 26 128/54 94 Oxymask 10.0 10/01/17 11:55 121 34 93 10/01/17 11:30 94 Oxymask 10/01/17 11:07 136 10/01/17 11:05 92 Mask 10.0 10/01/17 11:03 103/76 10/01/17 11:00 130 36 103/76 74 Room Air Physical Exam Physical Exam GENERAL: Tachypneic appears in distress HENT: Exam performed. Head: Normocephalic and atraumatic. Right Ear: External ear normal. No mastoid tenderness. Left Ear: External ear normal. No mastoid tenderness. Mouth/Throat: The oropharynx is clear and moist. No trismus in the jaw. No dental abscesses or uvula swelling. No oropharyngeal exudate or tonsillar abscesses. ____ EYES: Conjunctivae and EOM are normal. Pupils are equal, round, and reactive to light. Right eye exhibits no discharge. Left eye exhibits no discharge. No scleral icterus. ____ NECK: Normal range of motion. Neck supple. No JVD present. No spinous process tenderness present. No carotid bruit present. No rigidity. No tracheal deviation and normal range of motion present. No Brudzinski's sign and no Kernig 's sign noted. ____ CV: Tachycardic regular rhythm, normal heart sounds and intact distal pulses. There is no peripheral edema. Palpable radial pulses bue. ____ PULM/CHEST: Tachypneic. has no wheezes. mild rales at bases Chest Wall: exhibits no tenderness. ____ ABD: The abdomen is soft. Bowel sounds are normal. has no distension. No mass is present. There is no tenderness. There is no rebound, no guarding, no Lama' s sign and no tenderness at McBurney's point. Rovsig negative MUSC/SKEL: Normal range of motion. There is no peripheral edema, tenderness or deformity. LYMPH: No cervical adenopathy. ____ NEURO: alert and oriented to person, place, and time. has normal strength. No cranial nerve deficit or sensory deficit. Coordination and gait normal. GCS eye subscore is 4. GCS verbal subscore is 5. GCS motor subscore is 6. Cerebellar tests wnl. ____ SKIN: Skin is warm and dry. is not diaphoretic. ____ PSYCH: has a normal mood and affect. behavior is normal. Judgment and thought content normal. ____ Medical Decision & Procedures ER Provider Diagnostic Interpretation: Radiology results as stated below per my review and radiologist interpretation: CT ANGIOGRAPHY OF THE CHEST, PULMONARY EMBOLUS PROTOCOL FINDINGS: No pulmonary emboli are identified although the segmental and subsegmental pulmonary arteries are suboptimally assessed due to respiratory motion. The heart is mildly enlarged. There is no pericardial effusion. No enlarged axillary, mediastinal or hilar lymph nodes are present. There is no pneumothorax or pleural effusion. The lungs are suboptimally assessed due to respiratory motion. Extensive multifocal groundglass opacities noted throughout the lungs. There is no cavitation. Central airways are patent. Bony thorax and upper abdomen are unremarkable. IMPRESSION: 1. No pulmonary emboli identified although segmental and subsegmental pulmonary arteries suboptimally assessed due to respiratory motion. 2. Extensive multifocal groundglass opacities throughout the lungs which are nonspecific. Differential considerations include multifocal pneumonia, pulmonary edema and drug reaction. 3. Mild cardiomegaly. 4. No thoracic lymphadenopathy. Electronically signed by: Fernie Arce M.D. 10/01/2017 12:24 PM CHEST ONE VIEW PORTABLE FINDINGS: There is no pneumothorax or pleural effusion. Cardiomediastinal silhouette is normal. There is been interval development of bibasilar opacities and interstitial thickening. IMPRESSION: Interval development of bibasilar opacities and interstitial thickening which may reflect pneumonia or pulmonary edema. Electronically signed by: Fernie Arce M.D. 10/01/2017 11:40 AM Laboratory Results 10/01/17 11:42 Red Blood Count 3.88, Mean Corpuscular Volume 85.8, Mean Corpuscular Hemoglobin 30.7, Mean Corpuscular Hemoglobin Concent 35.7, Mean Platelet Volume 9.0, Neutrophils (%) (Auto) 87.4, Lymphocytes (%) (Auto) 4.5, Monocytes (%) (Auto) 6.1, Eosinophils (%) (Auto) 1.2, Basophils (%) (Auto) 0.1, Neutrophils # (Auto) 5.86, Lymphocytes # (Auto) 0.30, Monocytes # (Auto) 0.41, Eosinophils # (Auto) 0.08, Basophils # (Auto) 0.01 10/01/17 11:42 Test 10/01/17 11:42 10/01/17 12:01 10/01/17 12:07 White Blood Count 6.71 K/uL (4.8-10.8) Red Blood Count 3.88 M/uL (4.7-6.1) Hemoglobin 11.9 g/dL (14.0-18.0) Hematocrit 33.3 % (42-52) Mean Corpuscular Volume 85.8 fL (80-100) Mean Corpuscular Hemoglobin 30.7 pg (25-34) Mean Corpuscular Hemoglobin Concent 35.7 g/dl (32-36) Platelet Count 200 K/uL (130-400) Mean Platelet Volume 9.0 fL (7.4-10.4) Neutrophils (%) (Auto) 87.4 % Lymphocytes (%) (Auto) 4.5 % Monocytes (%) (Auto) 6.1 % Eosinophils (%) (Auto) 1.2 % Basophils (%) (Auto) 0.1 % Neutrophils # (Auto) 5.86 K/uL (1.4-6.5) Lymphocytes # (Auto) 0.30 K/uL (1.2-3.4) Monocytes # (Auto) 0.41 K/uL (0.11-0.59) Eosinophils # (Auto) 0.08 K/uL (0-0.5) Basophils # (Auto) 0.01 K/uL (0-0.2) RDW Standard Deviation 40.7 fL (36.4-46.3) RDW Coefficient of Variation 13.0 % (11.5-14.5) Immature Granulocyte % (Auto) 0.7 % Immature Granulocyte # (Auto) 0.05 K/uL (0.00-0.02) Prothrombin Time 11.7 SECONDS (9.0-12.0) Prothromb Time International Ratio 1.1 (0.9-1.1) Activated Partial Thromboplast Time 32.7 SECONDS (21.0-31.0) Partial Thromboplastin Ratio 1.3 Est Creatinine Clear Calc Drug Dose 64.4 ml/min Estimated GFR () 69.8 Estimated GFR (Non- 60.2 BUN/Creatinine Ratio 14.2 (10-20) Lactic Acid Level 1.5 mmol/L (0.4-2.0) Calcium Level 8.5 mg/dl (8.5-10.1) Pro-B-Type Natriuretic Peptide 129 pg/ml (0-900) Bedside Hemoglobin 10.9 g/dl (14.0-18.0) Bedside Hematocrit 32 % (42-52) Bedside Sodium 136 mEq/L (135-144) Bedside Potassium 3.6 mEq/L (3.3-5.0) Bedside Chloride 105 mEq/L (101-112) Bedside Total CO2 21 mEq/l (24-31) Anion Gap 15.0 mmol/L (16-25) Bedside Blood Urea Nitrogen 15 mg/dl (7-18) Bedside Creatinine 1.2 mg/dl (0.6-1.3) Bedside Glucose (other) 152 mg/dl (70-99) Bedside Ionized Calcium (Martita) 1.16 mmol/l (1.12-1.32) Venous Blood pH 7.48 (7.36-7.41) Venous Blood Partial Pressure CO2 31 mmHg (38.0-50.0) Venous Blood Partial Pressure O2 50 mmHg Venous Blood HCO3 22 mmol/L Venous Blood Oxygen Saturation 86.2 % Venous Blood Base Excess -0.6 mEq/L Laboratory results reviewed by me Medications Administered Medications (Trade) Dose Ordered Sig/Michael Route Start Time Stop Time Status Last Admin Dose Admin Famotidine (Pepcid 20mg Iv Push) 20 mg ONE STAT IV 10/01/17 11:17 10/01/17 11:19 DC 10/01/17 11:27 20 MG Epinephrine HCl (EpINEphrine INJ 1MG/ML AMP/VIAL) 0.3 mg NOW STAT IM 10/01/17 11:26 10/01/17 11:28 DC 10/01/17 11:35 0.3 MG Piperacillin Sod/ Tazobactam Sod (Zosyn Iv) 4.5 gm NOW STAT IV 10/01/17 13:22 10/01/17 13:24 DC 10/01/17 15:05 4.5 GM Sodium Chloride 500 ml @ 999 mls/hr Q31M STAT IV 10/01/17 11:15 10/01/17 15:09 DC 10/01/17 11:15 999 MLS/HR ECG Per My Interpretation Indication: SOB/dyspnea Rate (beats per minute): 128 Rhythm: sinus tachycardia Findings: other (OR, QRS, and QTC intervals within normal limits. No ST elevation or depression. ) ED Course 1113: The patient was evaluated in room C10 immediately upon arrival. The patient was immediately placed on the monitoring and evaluation advisor, nonrebreather mask, and IV access was obtained immediately. A complete history and physical exam was performed. 1117: Ordered Pepcid 20 mg IV. 1123: I spoke with Dr. Dolan of Hematology. I spoke with Dr. Dolan of Hematology. He states that the patient received a higher concentration of Anaplex than normal. He states that the patient then developed rigors, tachypnea and tachycardia immediately following administration. The patient's oxygen saturations were in the 80's despite being on a non-rebreather. He was given 50 mg Benadryl, 125 mg Solu-Medrol, and Demerol. Dr. Dolan states that the patient' s symptoms could be an anaphylactoid reaction, but a true anaphylactic reaction cannot be ruled out. He states that there is no contraindication to Epi. He agrees that PE is possible based on history. 1126: Ordered Epinephrine Inj 1 mg/mL 0.3 mg IM. 1200: The patient states that he feels better after IM Epi. Repeat lung auscultation shows rales at the bilateral lung bases. 1249: I spoke with Dr. Prater of Cardiology. Dr. Prater recommends no heparin at this time. 1320: I spoke with Dr. Amanda of Pulmonology. Dr. Amanda feels that the patient' s symptoms could be noncardiogenic pulmonary edema. Given the patient's history and CT (which he personally reviewed), he would recommend broad spectrum antibiotics and admission to the hospital. He will consult on the patient. 1322: Ordered Vancomycin HCl 1000 mg/Sodium Chloride 270 ml @ 125 mls/hr IV, Zosyn 4.5 gm IV. 1325: Upon reexamination, the patient was resting comfortably. I discussed the test results and treatment plan with him. The patient will be evaluated for further management. Medical Decision 1113: The patient was evaluated in room C10 immediately upon arrival. The patient was immediately placed on the monitoring and evaluation advisor, nonrebreather mask, and IV access was obtained immediately. A complete history and physical exam was performed. 1117: Ordered Pepcid 20 mg IV. 1123: I spoke with Dr. Dolan of Hematology. I spoke with Dr. Dolan of Hematology. He states that the patient received a higher concentration of Anaplex than normal. He states that the patient then developed rigors, tachypnea and tachycardia immediately following administration. The patient's oxygen saturations were in the 80's despite being on a non-rebreather. He was given 50 mg Benadryl, 125 mg Solu-Medrol, and Demerol. Dr. Dolan states that the patient' s symptoms could be an anaphylactoid reaction, but a true anaphylactic reaction cannot be ruled out. He states that there is no contraindication to Epi. He agrees that PE is possible based on history. 1126: Ordered Epinephrine Inj 1 mg/mL 0.3 mg IM. 1200: The patient states that he feels better after IM Epi. Repeat lung auscultation shows rales at the bilateral lung bases. 1249: I spoke with Dr. Prater of Cardiology. Dr. Prater recommends no heparin at this time. 1320: I spoke with Dr. Amanda of Pulmonology. Dr. Amanda feels that the patient' s symptoms could be noncardiogenic pulmonary edema. Given the patient's history and CT (which he personally reviewed), he would recommend broad spectrum antibiotics and admission to the hospital. He will consult on the patient. 1322: Ordered Vancomycin HCl 1000 mg/Sodium Chloride 270 ml @ 125 mls/hr IV, Zosyn 4.5 gm IV. 1325: Upon reexamination, the patient was resting comfortably. I discussed the test results and treatment plan with him. The patient will be evaluated for further management. Medication Reconcilliation Current Medication List: was personally reviewed by me Blood Pressure Screening Patient's blood pressure: Normal blood pressure Blood pressure disposition: Did not require urgent referral Consults Time Called: 1118 Consulting Physician: Dr. Dolan - Hematology Returned Call: [address] Dolan of Hematology. He states that the patient received a higher concentration of Anaplex than normal. He states that the patient then developed rigors, tachypnea and tachycardia immediately following administration. The patient's oxygen saturations were in the 80's despite being on a non-rebreather. He was given 50 mg Benadryl, 125 mg Solu-Medrol, and Demerol. Dr. Dolan states that the patient's symptoms could be an anaphylactoid reaction, but a true anaphylactic reaction cannot be ruled out. He states that there is no contraindication to Epi. He agrees that PE is possible based on history. 1243: I updated Dr. Dolan on the patient's case. Additional Consults: Time Called: 1242 Consulted Physician: Dr. Prater - Cardiology Returned Call: 1249 Additional Comments: Discussed the patient's case. Dr. Prater recommends no heparin at this time. Time Called: 1315 Consulted Physician: Dr. Amanda - Pulmonology Returned Call: 1320 Additional Comments: Discussed the patient's case. Dr. Amanda feels that the patient's symptoms could be noncardiogenic pulmonary edema. Given the patient's history and CT ( which he personally reviewed), he would recommend broad spectrum antibiotics and admission to the hospital. He will consult on the patient. Time Called: 1322 Consulting Physician: Dr. Duran - [facility] [place] Returned Call: 1330 Comments: Discussed the patient's case. The patient will be evaluated for further treatment and disposition. Impression Primary Impression: Hypoxia Additional Impressions: Elevated troponin Pneumonia Critical Care I have personally spent greater than 75 minutes of critical care time in the direct management of this patient. This includes bedside care, interpretation of diagnostic studies, and testing, discussion with consultants, patient, and family members, and other required patient management activities. This 75 minutes is in excess of all separately billable procedures. Scribe Attestation The scribe's documentation has been prepared under my direction and personally reviewed by me in its entirety. I confirm that the note above accurately reflects all work, treatment, procedures, and medical decision making performed by me. The chart was completed utilizing [employer] Speech voice recognition software. Grammatical errors, random word insertions, pronoun errors, and incomplete sentences are an occasional consequence of this system due to software limitations, ambient noise, and hardware issues. Any formal questions or concerns about the content, text, or information contained within the body of this dictation should be directly addressed to the physician for clarification. Departure Information Dispostion Being Evaluated By Hospitalist Referrals Tegan Arias PA-C (PCP) Patient Instructions My [facility] Problem Qualifiers Additional Impressions: Pneumonia Pneumonia type: due to unspecified organism Laterality: unspecified laterality Lung location: unspecified part of lung Qualified Codes: J18.9 - Pneumonia, unspecified organism
[2017-10-01] MEDS: DiphenhydrAMINE HCL 50 MG/ML VIAL IV SCH (17:33)
[2017-10-01] MEDS: FAMOTIDINE IV INJ 20 MG in DEXTROSE 5% 100ML 100 ML IV SCH (17:34)
[2017-10-01] MEDS: NSS + 20MEQ KCL 1000ML 1,000 ML IV SCH (17:34)
[2017-10-01] MEDS: METHYLPREDNISOLONE IV 60 MG in SYRINGE 0 ML IV SCH ×2 (17:35→22:34)
--- NOTE | 2017-10-01 18:36 | Pulmonary Consultation ---
History General Date of Service: Oct 01, 2017. Stated Complaint: Anaphylaxis, Pneumonia HPI Dear Dr. Duran: Thank you for your kind referral of Mrs. White to pulmonary service. This is 72 -year-old gentleman with a history of asthma, has been followed by Dr. Amanda in the past and now by Dr. Schafer, had a history of non-Hodgkin lymphoma treated 7 years ago, with recurrence late last year when he started on chemotherapy for the past 6 months, the patient did have hypogammaglobulinemia, and was given infusion of immunoglobulin in the past. The patient presented to the hematology office where he received another infusion of immunoglobulin. According to the patient, he tolerated the very first great and upon increasing the rate of infusion he started developing rigors, shortness of breath, persistent cough. The patient at that time was given Decadron, epinephrine, Tylenol, and the infusion was aborted. The patient was transferred to the ER for further management. In the ED, the patient was given Solu-Medrol, and due to the concerns given his condition underwent CT angiogram of the chest which did not reveal any PE but showed bilateral patchy infiltrate consistent with groundglass opacities. No significant lymphadenopathy and no pleural effusion. Cardiomegaly was noted. The patient was admitted to the PCU level and we were asked to evaluate the patient from pulmonary standpoint. The patient claims having cough for the past month and he was treated with several courses of prednisone and azithromycin for bronchitis. The patient did not have any admission to the hospital during that month. He received R [facility] chemotherapy and he has been tolerating it well. No evidence of pancytopenia at this point. No recent infectious process. And he was doing well except for the cough for the past month. Currently the patient feels much better after he received the steroids, he did not have any chest pain, no orthopnea, his cough is occasionally worse mainly with the supine position, no fever and no constitutional symptoms at the moment , no tickle in his throat. Patient denies any nausea or vomiting and no change in bowel movements, no increased swelling in his lower extremities, he does not have any change in his body weight, and he did not have dizziness or loss of consciousness consciousness. The patient had sporadic smoking history with less than [id number] history. 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 He never worked on a farm or industrial work. He denies similar reaction to previous infusion to immunoglobulin. Historian: patient, other (Records) Review of Systems Constitutional: reports: no symptoms Eyes: reports: no symptoms ENT: reports: no symptoms Cardiovascular: reports: no symptoms Respiratory: reports: cough, shortness of breath, wheezing, sputum production Gastrointestinal: reports: no symptoms Genitourinary - Male: reports: no symptoms Musculoskeletal: reports: other (Rigors) Neurologic: reports: no symptoms Psychiatric: reports: no symptoms Past Medical History Past Medical History: History of non-Hodgkin lymphoma, CVA, no neurologic deficit, hypertension, recurrence of non-Hodgkin lymphoma and currently on chemotherapy, hypogammaglobulinemia, Family History No pertinent family history Social History Hx Tobacco Use In Past Year?: No Smoking Status: Never Smoker Marital status: Occupational Status: employed Immunizations History of Influenza Vaccine: Yes History of Tetanus Vaccine?: Yes Tetanus Immunization Date: Apr 03, 2010 History of Pneumococcal: Yes History of Hepatitis B Vaccine: No History of MDRO History of MDRO: No Allergies Coded Allergies: POLLEN (Unverified Allergy, Unknown, environmental, 10/01/17) Current Medications Reported Home Medications Medications Dose Route/Sig Max Daily Dose Days Date Category Albuterol Sulfate 1.25 Mg/3 Ml Neb 1 Vial NEB Q4 5 10/01/17 Reported Tessalon Perles (Benzonatate) 100 Mg Cap 100 Mg PO TID PRN 09/24/17 Rx Mucinex Dm (Dextromethorphan-Guaifenesin) 1 Tab Tab 1 Tab PO Q12 PRN 09/24/17 Reported Flonase Allergy Relief (Fluticasone Propionate (Nasal)) 50 Mcg/Act Spr 2 Sprays KAREEM DAILY 09/24/17 Reported Advil (Ibuprofen) 200 Mg Tab 400-600 Mg PO Q6H 09/24/17 Reported Symbicort 160/4.5 Inhaler (Budesonide/Formoterol Fumarate) Aero 2 Puffs INH BID 09/24/17 Reported Zyrtec (Cetirizine HCl) 10 Mg Tab 10 Mg PO DAILY 09/24/17 Reported Aspirin Ec (Aspirin) 81 Mg Tab 81 Mg PO DAILY 09/24/17 Reported Probiotic (Probiotic Product) 1 Cap Cap 1 Cap PO QAM 01/28/17 Reported Zithromax (Azithromycin) 250 Mg Tab 250 Mg PO QAM 01/28/17 Reported Zestril (Lisinopril) 20 Mg Tab 20 Mg PO QAM 06/17/08 Reported Physical Physical Exam Vital Signs: Date Time Temp Pulse Resp B/P (MAP) Pulse Ox O2 Delivery O2 Flow Rate FiO2 10/01/17 16:36 36.4 98 18 121/71 95 Mask 10.0 10/01/17 15:01 138/77 10/01/17 15:00 96 20 138/77 98 Oxymask 10.0 10/01/17 14:55 95 25 92 10/01/17 14:53 95 10/01/17 14:31 129/75 10/01/17 14:01 130/83 10/01/17 14:00 37.0 101 20 130/83 97 Oxymask 10.0 10/01/17 13:55 103 19 97 10/01/17 13:31 123/88 10/01/17 13:30 118 20 123/88 97 Oxymask 10.0 10/01/17 13:01 127/64 10/01/17 13:00 109 127/64 94 Oxymask 10.0 10/01/17 12:55 113 35 93 10/01/17 12:34 120/68 10/01/17 12:33 116 31 120/68 92 Oxymask 10.0 10/01/17 12:04 128/54 10/01/17 12:03 119 26 128/54 94 Oxymask 10.0 10/01/17 11:55 121 34 93 10/01/17 11:30 94 Oxymask 10/01/17 11:07 136 10/01/17 11:05 92 Mask 10.0 10/01/17 11:03 103/76 10/01/17 11:00 130 36 103/76 74 Room Air General Appearance: WD/WN, NO APPARENT DISTRESS Eyes: PERRLA, EOMI ENT: NORMAL MOUTH EXAM Neck: TRACHEA MIDLINE Respiratory: rales Cardiovasular: NORMAL S1S2, NO M/G/R, NO MURMUR Abdomen: NON TENDER, NO REBOUND, NO MASSES, other (Abdomen is distended but soft) Back: NO MIDLINE TENDERNESS Lower Extremities: NO EDEMA Neuro: ALERT, ORIENTED x 3, NORMAL MOTOR EXAM Psychiatric: NORMAL AFFECT Diagnostics Labs Results Past 24 Hours Test 10/01/17 11:42 10/01/17 12:01 10/01/17 12:07 10/01/17 17:02 Range/Units White Blood Count 6.71 4.8-10.8 K/uL Red Blood Count 3.88 4.7-6.1 M/uL Hemoglobin 11.9 14.0-18.0 g/dL Hematocrit 33.3 42-52 % Mean Corpuscular Volume 85.8 80-100 fL Mean Corpuscular Hemoglobin 30.7 25-34 pg Mean Corpuscular Hemoglobin Concent 35.7 32-36 g/dl Platelet Count 200 130-400 K/uL Mean Platelet Volume 9.0 7.4-10.4 fL Neutrophils (%) (Auto) 87.4 % Lymphocytes (%) (Auto) 4.5 % Monocytes (%) (Auto) 6.1 % Eosinophils (%) (Auto) 1.2 % Basophils (%) (Auto) 0.1 % Neutrophils # (Auto) 5.86 1.4-6.5 K/uL Lymphocytes # (Auto) 0.30 1.2-3.4 K/uL Monocytes # (Auto) 0.41 0.11-0.59 K/uL Eosinophils # (Auto) 0.08 0-0.5 K/uL Basophils # (Auto) 0.01 0-0.2 K/uL RDW Standard Deviation 40.7 36.4-46.3 fL RDW Coefficient of Variation 13.0 11.5-14.5 % Immature Granulocyte % (Auto) 0.7 % Immature Granulocyte # (Auto) 0.05 0.00-0.02 K/uL Prothrombin Time 11.7 9.0-12.0 SECONDS Prothromb Time International Ratio 1.1 0.9-1.1 Activated Partial Thromboplast Time 32.7 21.0-31.0 SECONDS Partial Thromboplastin Ratio 1.3 Sodium Level 135 136-145 mmol/L Potassium Level 3.5 3.5-5.1 mmol/L Chloride Level 105 98-107 mmol/L Carbon Dioxide Level 22 21-32 mmol/L Anion Gap 8.0 15.0 16-25 mmol/L Blood Urea Nitrogen 17 7-18 mg/dl Creatinine 1.19 0.60-1.40 mg/dl Est Creatinine Clear Calc Drug Dose 64.4 ml/min Estimated GFR () 69.8 Estimated GFR (Non- 60.2 BUN/Creatinine Ratio 14.2 10-20 Random Glucose 143 70-99 mg/dl Lactic Acid Level 1.5 0.4-2.0 mmol/L Calcium Level 8.5 8.5-10.1 mg/dl Troponin I 0.347 0.713 0-0.045 ng/ml Pro-B-Type Natriuretic Peptide 129 0-900 pg/ml Bedside Hemoglobin 10.9 14.0-18.0 g/dl Bedside Hematocrit 32 42-52 % Bedside Sodium 136 135-144 mEq/L Bedside Potassium 3.6 3.3-5.0 mEq/L Bedside Chloride 105 101-112 mEq/L Bedside Total CO2 21 24-31 mEq/l Bedside Blood Urea Nitrogen 15 7-18 mg/dl Bedside Creatinine 1.2 0.6-1.3 mg/dl Bedside Glucose (other) 152 70-99 mg/dl Bedside Ionized Calcium (Martita) 1.16 1.12-1.32 mmol/l Venous Blood pH 7.48 7.36-7.41 Venous Blood Partial Pressure CO2 31 38.0-50.0 mmHg Venous Blood Partial Pressure O2 50 mmHg Venous Blood HCO3 22 mmol/L Venous Blood Oxygen Saturation 86.2 % Venous Blood Base Excess -0.6 mEq/L Microbiology Results 10/01/17 Blood Culture, Received Pending 10/01/17 Blood Culture, Received Pending Diagnostic Radiology Chest x-ray was reviewed as well as the CAT scan which revealed development of pulmonary vascular congestion and mosaic pattern. I have reviewed the CAT scan myself. It is typical for acute lung injury, presumably drug-induced. This is not pneumonia nor CHF per se although it cannot be totally excluded. Impression Assessment and Plan 1. Allergic reaction type I although it could be also type III with antigen antibody complex. The patient could have had memory cells that are sensitized to the infused immunoglobulin since the patient has received immunoglobulin in the past. Delayed hypersensitivity with memory to previous infusion of immunoglobulin can be the case. Altering the rate and the dose of the immunoglobulin while infused could induce such a reaction in the lung. 2. Drug-induced acute lung injury, this is not an infectious process. 3. History of asthma, well controlled. 4. I doubt this is acute lung injury secondary to recent chemotherapy. In review of his previous chest x-rays, they have been clear. 5. Non-ST elevation RI, could be secondary to the event, however it is concerning in this patient with cardiomegaly, last echocardiogram was done in 2013 showing normal echo. Now with positive troponin and cardiomegaly and his chest x-ray. BNP is negative. Plan: 1. Supportive care only. 2. Although steroids being used, there are controversial, however, I will continue with Solu-Medrol current dose for the treatment of type I allergic reaction. Keep in mind, the treatment with the steroids should continue for 2 weeks if the patient continued to improve, due to the long half-life of immunoglobulin. 3. Continue his home bronchodilators. 4. Obtain echocardiogram. Evaluation for cardiomegaly noted as well as non-ST elevation RI on this admission. 5. No need for antibiotics. 6. Aggressive treatment for GERD as he is asthmatic. 7. Repeat the chest x-ray or the CAT scan in 2 weeks. 8. No need for bronchoscopy. Thank you for the kind referral, will follow.
[2017-10-01 19:03] VITALS: PULSE 89; O2SAT 90
[2017-10-01] MEDS: ALBUT/IPRATROP 3MG/0.5MG NEB 3 ML VIAL INH SCH (19:03)
[2017-10-01 19:38] VITALS: BP 125/63; PULSE 88; TEMP 36.5; O2SAT 97
[2017-10-01 20:00] VITALS: BP 126/64; PULSE 96; TEMP 36.4; O2SAT 91
--- NOTE | 2017-10-01 20:33 | Progress Note ---
Progress Note Date of Service Oct 01, 2017. Progress Note I received notification that patient's troponin had increased from .347-->.713. Patient denies Chest pain, palpitation. AFVSS. Cardiac Exam unremarkable. Repeat EKG shows NSR with prolonged QT of 524. no ischemic changes. GENERAL: alert, well appearing, no distress EYE EXAM: normal conjunctiva, PERRL and EOM's grossly intact LUNGS: Clear to auscultation. Normal chest wall mechanics HEART: no murmurs, S1 normal and S2 normal UPPER EXTREMITIES: upper extremities are grossly normal. LOWER EXTREMITIES: No pitting edema. NEURO EXAM: Normal sensorium, cranial nerves II-XII grossly intact Elevated Troponin - demand ischemia vs ACS ( unlikely given lack of symptoms) -Started Heparin drip. Patient to be get echo in the morning and will seen in morning by Cardiology.
[2017-10-01] MEDS: BUDESONIDE/FORMOTEROL FUMARATE 160/4.5 60 PUFFS/INHALER INH SCH (20:57)
[2017-10-01] MEDS: BENZONATATE 100MG CAP PO PRN (20:57)
[2017-10-01] MEDS ORDERED: HEPARIN IV BOLUS 6,000 UNIT in SYRINGE 0 ML IV ONE (21:30)
[2017-10-01] MEDS: HEPARIN 25,000 UNIT/500ML D5W 500 ML IV SCH (21:43)
[2017-10-01] MEDS ORDERED: HEPARIN SOD 5000 UNIT/0.5 ML CARP SQ SCH (22:00)
[2017-10-01 23:56] VITALS: BP 111/66; PULSE 77; TEMP 36.4; O2SAT 96
[2017-10-02] VITALS (12 sets, daily range): BP systolic 92–132; BP diastolic 52–66; PULSE 69–95; TEMP 36.2–36.8; O2SAT 90–97
[2017-10-02] MEDS: DiphenhydrAMINE HCL 50 MG/ML VIAL IV SCH ×2 (00:57→08:28)
[2017-10-02] MEDS: ALBUT/IPRATROP 3MG/0.5MG NEB 3 ML VIAL INH SCH ×5 (01:52→19:10)
[2017-10-02 03:56] LABS: HEMATOCRIT 30.9 % (42-52); HEMOGLOBIN 11.2 g/dL (14.0-18.0); MEAN CELL VOLUME 85.1 fL (80-100); MEAN CORPUSCULAR HEMOGLOBIN 30.9 pg (25-34); MEAN CORPUSCULAR HGB CONC 36.2 g/dl (32-36); MEAN PLATELET VOLUME 8.9 fL (7.4-10.4); PLATELET COUNT 195 K/uL (130-400); RED CELL DISTRIBUTION WIDTH CV 12.9 % (11.5-14.5); RED CELL DISTRIBUTION WIDTH SD 40.2 fL (36.4-46.3); WHITE BLOOD COUNT 4.94 K/uL (4.8-10.8)
[2017-10-02 04:13] LABS: CALCIUM 8.7 mg/dl (8.5-10.1); CREATININE 1.16 mg/dl (0.60-1.40); POTASSIUM 3.4 mmol/L (3.5-5.1)
[2017-10-02 04:22] LABS: PTT PATIENT 118.2 SECONDS (21.0-31.0)
[2017-10-02] MEDS: NSS + 20MEQ KCL 1000ML 1,000 ML IV SCH (05:24)
[2017-10-02] MEDS: METHYLPREDNISOLONE IV 60 MG in SYRINGE 0 ML IV SCH ×4 (05:24→20:17)
[2017-10-02] MEDS: FAMOTIDINE IV INJ 20 MG in DEXTROSE 5% 100ML 100 ML IV SCH (05:24)
[2017-10-02] MEDS: HEPARIN 25,000 UNIT/500ML D5W 500 ML IV SCH (05:30)
--- NOTE | 2017-10-02 07:48 | Progress Note ---
Subjective Date of Service: Oct 02, 2017. Subjective pt still with cough, this is not productive there is some discussion with regard to possible bronchoscopy in the future. Problem List Medical Problems: (1) Cough Status: Acute (2) Elevated troponin Status: Acute (3) Hypoxia Status: Acute (4) Laceration of hand Status: Acute Review of Systems Constitutional: + weakness, + fatigue, No fever, No chills Respiratory: + cough, + shortness of breath, + dyspnea on exertion Cardiac: No chest pain, No edema Abdomen: + pain, + nausea, + vomiting, + diarrhea Musculoskeletal: No joint pain, No muscle pain Male : No dysuria, No incontinence Neurologic: No memory loss, No weakness Psychiatric: No depression symptoms, No anhedonism Objective Vital Signs Date Time Temp Pulse Resp B/P (MAP) Pulse Ox O2 Delivery O2 Flow Rate FiO2 10/02/17 07:06 71 18 92 Room Air 10/02/17 04:00 Nasal Cannula 2.0 10/02/17 04:00 36.2 82 18 90 Room Air 10/02/17 03:43 82 106/58 (74) 10/02/17 01:52 77 18 93 Nasal Cannula 2.0 10/01/17 23:59 Nasal Cannula 2.0 10/01/17 23:56 36.4 77 20 111/66 (81) 96 Nasal Cannula 2.0 10/01/17 20:00 36.4 96 20 126/64 (84) 91 Nasal Cannula 2.0 10/01/17 20:00 91 Nasal Cannula 2.0 10/01/17 19:03 89 18 90 Room Air 10/01/17 16:36 36.4 98 18 121/71 95 Mask 10.0 10/01/17 15:01 138/77 10/01/17 15:00 96 20 138/77 98 Oxymask 10.0 10/01/17 14:55 95 25 92 10/01/17 14:53 95 10/01/17 14:31 129/75 10/01/17 14:01 130/83 10/01/17 14:00 37.0 101 20 130/83 97 Oxymask 10.0 10/01/17 13:55 103 19 97 10/01/17 13:31 123/88 10/01/17 13:30 118 20 123/88 97 Oxymask 10.0 10/01/17 13:01 127/64 10/01/17 13:00 109 127/64 94 Oxymask 10.0 10/01/17 12:55 113 35 93 10/01/17 12:34 120/68 10/01/17 12:33 116 31 120/68 92 Oxymask 10.0 10/01/17 12:04 128/54 10/01/17 12:03 119 26 128/54 94 Oxymask 10.0 10/01/17 11:55 121 34 93 10/01/17 11:30 94 Oxymask 10/01/17 11:07 136 10/01/17 11:05 92 Mask 10.0 10/01/17 11:03 103/76 10/01/17 11:00 130 36 103/76 74 Room Air Physical Exam General Appearance: WD/WN, + moderate distress Neck: supple, no JVD Respiratory/Chest: chest non-tender, + decreased breath sounds, + accessory muscle use, + wheezing Cardiovascular: regular rate, rhythm, no murmur Abdomen: soft, no pulsatile mass Extremities: no pedal edema, no calf tenderness Laboratory Results Last 24 Hours Test 10/01/17 11:42 10/01/17 12:01 10/01/17 12:07 10/01/17 17:02 White Blood Count 6.71 K/uL Red Blood Count 3.88 M/uL Hemoglobin 11.9 g/dL Hematocrit 33.3 % Mean Corpuscular Volume 85.8 fL Mean Corpuscular Hemoglobin 30.7 pg Mean Corpuscular Hemoglobin Concent 35.7 g/dl Platelet Count 200 K/uL Mean Platelet Volume 9.0 fL Neutrophils (%) (Auto) 87.4 % Lymphocytes (%) (Auto) 4.5 % Monocytes (%) (Auto) 6.1 % Eosinophils (%) (Auto) 1.2 % Basophils (%) (Auto) 0.1 % Neutrophils # (Auto) 5.86 K/uL Lymphocytes # (Auto) 0.30 K/uL Monocytes # (Auto) 0.41 K/uL Eosinophils # (Auto) 0.08 K/uL Basophils # (Auto) 0.01 K/uL RDW Standard Deviation 40.7 fL RDW Coefficient of Variation 13.0 % Immature Granulocyte % (Auto) 0.7 % Immature Granulocyte # (Auto) 0.05 K/uL Prothrombin Time 11.7 SECONDS Prothromb Time International Ratio 1.1 Activated Partial Thromboplast Time 32.7 SECONDS Partial Thromboplastin Ratio 1.3 Sodium Level 135 mmol/L Potassium Level 3.5 mmol/L Chloride Level 105 mmol/L Carbon Dioxide Level 22 mmol/L Anion Gap 8.0 mmol/L 15.0 mmol/L Blood Urea Nitrogen 17 mg/dl Creatinine 1.19 mg/dl Est Creatinine Clear Calc Drug Dose 64.4 ml/min Estimated GFR () 69.8 Estimated GFR (Non- 60.2 BUN/Creatinine Ratio 14.2 Random Glucose 143 mg/dl Lactic Acid Level 1.5 mmol/L Calcium Level 8.5 mg/dl Troponin I 0.347 ng/ml 0.713 ng/ml Pro-B-Type Natriuretic Peptide 129 pg/ml Bedside Hemoglobin 10.9 g/dl Bedside Hematocrit 32 % Bedside Sodium 136 mEq/L Bedside Potassium 3.6 mEq/L Bedside Chloride 105 mEq/L Bedside Total CO2 21 mEq/l Bedside Blood Urea Nitrogen 15 mg/dl Bedside Creatinine 1.2 mg/dl Bedside Glucose (other) 152 mg/dl Bedside Ionized Calcium (Martita) 1.16 mmol/l Venous Blood pH 7.48 Venous Blood Partial Pressure CO2 31 mmHg Venous Blood Partial Pressure O2 50 mmHg Venous Blood HCO3 22 mmol/L Venous Blood Oxygen Saturation 86.2 % Venous Blood Base Excess -0.6 mEq/L Test 10/01/17 22:07 10/02/17 03:48 Troponin I 0.505 ng/ml White Blood Count 4.94 K/uL Red Blood Count 3.63 M/uL Hemoglobin 11.2 g/dL Hematocrit 30.9 % Mean Corpuscular Volume 85.1 fL Mean Corpuscular Hemoglobin 30.9 pg Mean Corpuscular Hemoglobin Concent 36.2 g/dl RDW Standard Deviation 40.2 fL RDW Coefficient of Variation 12.9 % Platelet Count 195 K/uL Mean Platelet Volume 8.9 fL Activated Partial Thromboplast Time 118.2 SECONDS Partial Thromboplastin Ratio 4.5 Sodium Level 135 mmol/L Potassium Level 3.4 mmol/L Chloride Level 107 mmol/L Carbon Dioxide Level 20 mmol/L Anion Gap 8.0 mmol/L Blood Urea Nitrogen 17 mg/dl Creatinine 1.16 mg/dl Est Creatinine Clear Calc Drug Dose 65.1 ml/min Estimated GFR () 72.0 Estimated GFR (Non- 62.1 BUN/Creatinine Ratio 14.9 Random Glucose 192 mg/dl Calcium Level 8.7 mg/dl Magnesium Level 2.1 mg/dl Assessment and Plan 72 y/o M Hx HTN, TIA, follicular lymphoma - currently receiving chemotherapy, hypogammaglobulinemia as a result of chemo. 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 He developed rigors, SOB and was notably hypoxic with a saturation in the mid 70s. He was transported to the hospital therefore and treated for an acute reaction, receiving Epi and Benadryl. He had received Solumedrol and Demerol at the hematology office prior to arrival. The pt has improved with the aforementioned modalities and is comfortable with supplemental 02 at the time of admission. A CTA was obtained in the ER revealing extensive multifocal ground glass opacities which may represent pneumonia, pulmonary edema and drug reaction. He has not reported a productive cough or fever and does not have a history of CHF. Initial evaluation is not consistent with volume overload. Initial labs are notable for an elevated troponin and are otherwise unremarkable. He denies any acute CP, nausea/ vomiting or diaphoresis. Acute hypoxia, rigors - without fever - likely a reaction to gammaglobulin infusion which he states he has had in the past. He will be assigned to telemetry. 02, Methylprednisolone, Benadryl, Famotidine provided at scheduled intervals. The pt will be evaluated by pulmonary due to his CT findings. He received an initial dose of Abx in the ER. We will hold additional for now. Elevated trop - may have been due to demand owing to hypoxia. Trop will be trended, ASA provided, echo pending, cardio consult requested. Lymphoma - will cont chemo as outpt HTN - cont Lisinopril Full code - Heparin prophylaxis
[2017-10-02] MEDS: BUDESONIDE/FORMOTEROL FUMARATE 160/4.5 60 PUFFS/INHALER INH SCH (08:27)
[2017-10-02] MEDS: ASPIRIN 81 MG ECTAB PO SCH (08:27)
[2017-10-02] MEDS: LISINOPRIL 20 MG TAB PO SCH (08:27)
[2017-10-02] MEDS: FLUTICASONE PROPIONATE NA SPR 16 GM BTL NAE SCH (08:27)
[2017-10-02] MEDS: BENZONATATE 100MG CAP PO PRN ×2 (08:27→14:06)
[2017-10-02] MEDS: CETIRIZINE HCL 10 MG TAB PO SCH (08:27)
[2017-10-02] MEDS ORDERED: ASPIRIN 81 MG ECTAB PO SCH (09:00)
--- NOTE | 2017-10-02 10:00 | ECHOCARDIOGRAM REPORT ---
*NOTICE TO RECEIVING CONSTITUTION PARTY AGENCY This information is strictly Confidential and protected under [place] law. [place] law prohibits you from making any further disclosure of this information unless further disclosure is expressly permitted by the written consent of the person to whom it pertains or is authorized by law. A general authorization for the release of medical or other information is not sufficient for this purpose. Hospital accepts no responsibility if the information is made available to any other person, INCLUDING THE PATIENT. Interpretation Summary * Name: JEFFRY ALBRECHT Study Date: 10/02/2017 07:11 AM BP: 130/83 mmHg * Patient Location: C.2T\S\E215\S\1 HR: 94 * : 1945 (M/d/yyyy) Gender: Male Height: 70 in * Age: 72 yrs Ethnicity: CA Weight: 212 lb * Ordering Physician: Mike Duran * Referring Physician: No Doctor, Assigned * Performed By: Pool Faith RDCS * * Reason For Study: Elevated troponin * BSA: 2.1 m2 * -- Conclusions -- * Compard with 09/19/13 study, no significant change. * The left ventricle is normal in structure and function. * The left ventricular wall motion is normal. * Ejection Fraction = 65-70%. * Grade I diastolic dysfunction, (abnormal relaxation pattern). * The right ventricle is mildly dilated. * There is mild right ventricular hypertrophy. * The right ventricular systolic function is normal. * The inferior vena cava is mildly dilated. Procedure Details * A complete two-dimensional transthoracic echocardiogram was performed (2D, M-mode, Doppler and color flow Doppler). * The study was technically adequate. Left Ventricle * The left ventricle is normal in size. * There is normal left ventricular wall thickness. * The left ventricle is normal in structure and function. * Ejection Fraction = 65-70%. * The left ventricular wall motion is normal. Right Ventricle * The right ventricle is mildly dilated. * There is mild right ventricular hypertrophy. * The right ventricular systolic function is normal. Atria * The left atrial size is normal. * Right atrial size is normal. * The interatrial septum is intact with no evidence for an atrial septal defect. Mitral Valve * The mitral valve is normal in structure and function. * Significant mitral regurgitation is absent. Tricuspid Valve * The tricuspid valve is normal in structure and function. * Significant tricuspid regurgitation is absent. Aortic Valve * The aortic valve is trileaflet. * No hemodynamically significant valvular aortic stenosis. * No aortic regurgitation is present. Pulmonic Valve * The pulmonic valve is not well seen, but is grossly normal. * There is no significant pulmonary regurgitation. Great Vessels * The aortic root is normal size. * No obvious dissection could be visualized. * The pulmonary artery is normal size. Pericardium/Pleural * There is no pericardial effusion. Great Vessels * The inferior vena cava is mildly dilated. Left Ventricular Diastolic Function * Grade I diastolic dysfunction, (abnormal relaxation pattern). MMode 2D Measurements and Calculations IVSd 1.4 cm IVSs 1.8 cm LVIDd 4.2 cm LVIDs 2.5 cm LVPWd 1.1 cm LVPWs 1.8 cm IVS/LVPW 1.2 FS 41.4 % EDV(Teich) 78.5 ml ESV(Teich) 21.5 ml EF(Teich) 72.6 % EDV(cubed) 73.9 ml ESV(cubed) 14.9 ml EF(cubed) 79.8 % % IVS thick 34.6 % % LVPW thick 59.7 % LV mass(C)d 188.7 grams LV mass(C)dI 88.2 grams/m\S\2 LV mass(C)s 177.6 grams LV mass(C)sI 83.0 grams/m\S\2 SV(Teich) 57.0 ml SI(Teich) 26.6 ml/m\S\2 SV(cubed) 59.0 ml SI(cubed) 27.6 ml/m\S\2 EPSS 0.59 cm Ao root diam 3.1 cm Ao root area 7.7 cm\S\2 ACS 1.9 cm LA dimension 4.2 cm asc Aorta Diam 3.5 cm LA/Ao 1.3 LVOT diam 2.1 cm LVOT area 3.4 cm\S\2 LVAd ap4 23.1 cm\S\2 LVLd ap4 8.3 cm EDV(MOD-sp4) 53.8 ml EDV(sp4-el) 54.3 ml LVAs ap4 10.4 cm\S\2 LVLs ap4 6.6 cm ESV(MOD-sp4) 14.8 ml ESV(sp4-el) 13.8 ml EF(MOD-sp4) 72.5 % EF(sp4-el) 74.6 % LVAd ap2 26.8 cm\S\2 LVLd ap2 8.0 cm EDV(MOD-sp2) 73.6 ml EDV(sp2-el) 76.5 ml LVAs ap2 12.6 cm\S\2 LVLs ap2 6.5 cm ESV(MOD-sp2) 21.4 ml ESV(sp2-el) 20.8 ml EF(MOD-sp2) 70.9 % EF(sp2-el) 72.8 % LVLd %diff -4.29 % EDV(MOD-bp) 63.5 ml LVLs %diff -2.12 % ESV(MOD-bp) 17.9 ml EF(MOD-bp) 71.8 % SV(MOD-sp4) 39.0 ml SI(MOD-sp4) 18.2 ml/m\S\2 SV(MOD-sp2) 52.1 ml SI(MOD-sp2) 24.4 ml/m\S\2 SV(MOD-bp) 45.6 ml SI(MOD-bp) 21.3 ml/m\S\2 SV(sp4-el) 40.5 ml SI(sp4-el) 18.9 ml/m\S\2 SV(sp2-el) 55.7 ml SI(sp2-el) 26.0 ml/m\S\2 Doppler Measurements and Calculations MV E max mike 72.5 cm/sec MV A max mike 105.6 cm/sec MV E/A 0.69 MV dec time 0.14 sec Ao V2 max 170.8 cm/sec Ao max PG 11.7 mmHg Ao max PG (full) 4.2 mmHg GUNNAR(V,A) 2.7 cm\S\2 GUNNAR(V,D) 2.7 cm\S\2 LV V1 max PG 7.5 mmHg LV V1 max 136.5 cm/sec PA V2 max 138.0 cm/sec PA max PG 7.6 mmHg PA acc slope 770.6 cm/sec\S\2 PA acc time 0.15 sec PA pr(Accel) 10.3 mmHg
[2017-10-02] MEDS ORDERED: PROMETHAZINE HCL INJ 12.5 MG in SODIUM CHLORIDE 0.9% 50ML 50 ML IV PRN (10:45)
--- NOTE | 2017-10-02 11:30 | Pulmonology Progress Note ---
Pulmonary Progress Note Date of Service Oct 02, 2017. Attending Dr. Benavidez Subjective The patient feels better today, he continues to have cough no sputum production. He did not have any shortness of breath, he slept overnight without any difficulties. The patient did not have any chest pain, nausea or vomiting, no heartburn, no change in bowel movements or urine habits. Objective His physical exam today revealed on 10/02/2017, stable vital signs, no JVP, S1-S2 , regular rate and rhythm, very faint crackles mainly at the left base, abdomen is benign, trace edema in the periphery. He continues to have normal WBC. Assessment & Plan 1. Drug-induced acute lung injury, related to mechanism similar to TRALI. Possibly type I or type II hypersensitivity reaction. 2. Non-Hodgkin lymphoma, status post chemotherapy. 3. The findings on the CAT scan compatible with #1. 4. History of asthma, well controlled. Plan: 1. I would continue with IV steroids for today. 2. I have changed H1 blockers to Zyrtec only. Although I doubt that it has any value in this type of reaction which is antigen antibody complex. 3. I have change Pepcid to p.o. twice daily. 4. I would repeat the chest x-ray in the morning. If there is significant improvement, he can be changed to prednisone and discharged home. Length of steroid course is unknown, but I would treat him for at least 2 weeks due to the prolonged half-life of IVIG. 5. Future infusions can be administered without the same acute lung injury, premedications could be helpful, slower infusion rate also is helpful. Thank you, will follow. Data Medications: Current Inpatient Medications Medications (Trade) Dose Ordered Sig/Michael Route Start Time Stop Time Status Last Admin Dose Admin Ioversol (Optiray 320) 125 ml UD PRN IV 10/01/17 11:30 10/05/17 11:29 Aspirin (Ecotrin Tab) 81 mg DAILY PO 10/02/17 09:00 11/01/17 08:59 10/02/17 08:27 81 MG Benzonatate (Tessalon Perles Cap) 100 mg TID PRN PO 10/01/17 15:00 10/31/17 14:59 10/02/17 08:27 100 MG Budesonide/ Formoterol Fumarate (Symbicort 160/ 4.5 Inh) 2 puffs BID INH 4/6/18 21:00 10/31/17 20:59 Future Hold 10/02/17 08:27 2 PUFFS Cetirizine HCl (zyrTEC TAB) 10 mg DAILY PO 10/02/17 09:00 11/01/17 08:59 10/02/17 08:27 10 MG Fluticasone Propionate (Flonase Nasal Rush) 2 sprays DAILY KAREEM 10/02/17 09:00 11/01/17 08:59 10/02/17 08:27 2 SPRAYS Ibuprofen (Advil Tab) 400 mg Q8H PRN PO 10/01/17 14:45 10/31/17 14:44 Lisinopril (Zestril Tab) 20 mg QAM PO 10/02/17 09:00 11/01/17 08:59 10/02/17 08:27 20 MG Acetaminophen (Tylenol Tab) 650 mg Q4H PRN PO 10/01/17 14:45 10/31/17 14:44 Al Hydrox/Mg Hydrox/Simethicone (Maalox Max Susp) 15 ml Q4H PRN PO 10/01/17 14:45 10/31/17 14:44 Magnesium Hydroxide (Milk Of Magnesia Susp) 30 ml Q12H PRN PO 10/01/17 14:45 10/31/17 14:44 Zolpidem Tartrate (Ambien Tab) 5 mg HSZ PRN PO 10/01/17 14:45 10/31/17 14:44 Ondansetron HCl (Zofran Inj) 4 mg Q6H PRN IV 10/01/17 14:45 10/31/17 14:44 Morphine Sulfate (MoRPHine SULFATE INJ) 2 mg Q30M PRN IV 10/01/17 14:45 10/15/17 14:44 Polyethylene (Miralax Powder Packet) 17 gm DAILY PRN PO 10/01/17 14:45 10/31/17 14:44 Albuterol Sulfate (Ventolin 0.083% 2.5MG/3ML Neb) 2.5 mg Q4H PRN INH 10/01/17 15:00 10/31/17 14:59 Methylprednisolone Sodium Succinate 60 mg/Syringe 0.96 ml @ 1.5 mls/min Q6H IV 10/01/17 17:00 5/6/18 16:59 10/02/17 11:22 1.5 MLS/MIN Potassium Chloride/Sodium Chloride 1,000 ml @ 75 mls/hr [id number] IV 10/01/17 17:00 10/02/17 18:34 10/02/17 05:24 75 MLS/HR Albuterol/ Ipratropium (Duoneb) 3 ml QIDR INH 10/02/17 12:00 10/31/17 14:59 10/02/17 11:16 3 ML Enoxaparin Sodium (Lovenox Inj) 40 mg PM SQ 10/02/17 21:00 11/01/17 20:59 Arformoterol Tartrate (Brovana 15MCG/ 2ML Neb Soln) 15 mcg BIDR INH 10/02/17 20:00 11/01/17 19:59 Promethazine HCl 12.5 mg/Sodium Chloride 50.5 ml @ 204 mls/hr Q6H PRN IV 10/02/17 10:45 11/01/17 10:44 Famotidine (Pepcid Tab) 20 mg BID PO 10/02/17 21:00 11/01/17 20:59 UNV Vital Signs: Date Time Temp Pulse Resp B/P (MAP) Pulse Ox O2 Delivery O2 Flow Rate FiO2 10/02/17 11:16 80 16 97 Room Air 10/02/17 11:15 36.8 81 20 109/58 (75) 95 Room Air 10/02/17 08:00 Room Air 10/02/17 07:53 36.6 91 18 124/63 (83) 92 Room Air 10/02/17 07:06 71 18 92 Room Air 10/02/17 04:00 Nasal Cannula 2.0 10/02/17 04:00 36.2 82 18 90 Room Air 10/02/17 03:43 82 106/58 (74) 10/02/17 01:52 77 18 93 Nasal Cannula 2.0 10/01/17 23:59 Nasal Cannula 2.0 10/01/17 23:56 36.4 77 20 111/66 (81) 96 Nasal Cannula 2.0 10/01/17 20:00 36.4 96 20 126/64 (84) 91 Nasal Cannula 2.0 10/01/17 20:00 91 Nasal Cannula 2.0 10/01/17 19:03 89 18 90 Room Air 10/01/17 16:36 36.4 98 18 121/71 95 Mask 10.0 10/01/17 15:01 138/77 10/01/17 15:00 96 20 138/77 98 Oxymask 10.0 10/01/17 14:55 95 25 92 10/01/17 14:53 95 10/01/17 14:31 129/75 10/01/17 14:01 130/83 10/01/17 14:00 37.0 101 20 130/83 97 Oxymask 10.0 10/01/17 13:55 103 19 97 10/01/17 13:31 123/88 10/01/17 13:30 118 20 123/88 97 Oxymask 10.0 10/01/17 13:01 127/64 10/01/17 13:00 109 127/64 94 Oxymask 10.0 10/01/17 12:55 113 35 93 10/01/17 12:34 120/68 10/01/17 12:33 116 31 120/68 92 Oxymask 10.0 10/01/17 12:04 128/54 10/01/17 12:03 119 26 128/54 94 Oxymask 10.0 10/01/17 11:55 121 34 93 10/01/17 11:30 94 Oxymask Laboratory Results: Last 24 Hours Test 10/01/17 11:42 10/01/17 12:01 10/01/17 12:07 10/01/17 17:02 White Blood Count 6.71 K/uL Red Blood Count 3.88 M/uL Hemoglobin 11.9 g/dL Hematocrit 33.3 % Mean Corpuscular Volume 85.8 fL Mean Corpuscular Hemoglobin 30.7 pg Mean Corpuscular Hemoglobin Concent 35.7 g/dl Platelet Count 200 K/uL Mean Platelet Volume 9.0 fL Neutrophils (%) (Auto) 87.4 % Lymphocytes (%) (Auto) 4.5 % Monocytes (%) (Auto) 6.1 % Eosinophils (%) (Auto) 1.2 % Basophils (%) (Auto) 0.1 % Neutrophils # (Auto) 5.86 K/uL Lymphocytes # (Auto) 0.30 K/uL Monocytes # (Auto) 0.41 K/uL Eosinophils # (Auto) 0.08 K/uL Basophils # (Auto) 0.01 K/uL RDW Standard Deviation 40.7 fL RDW Coefficient of Variation 13.0 % Immature Granulocyte % (Auto) 0.7 % Immature Granulocyte # (Auto) 0.05 K/uL Prothrombin Time 11.7 SECONDS Prothromb Time International Ratio 1.1 Activated Partial Thromboplast Time 32.7 SECONDS Partial Thromboplastin Ratio 1.3 Sodium Level 135 mmol/L Potassium Level 3.5 mmol/L Chloride Level 105 mmol/L Carbon Dioxide Level 22 mmol/L Anion Gap 8.0 mmol/L 15.0 mmol/L Blood Urea Nitrogen 17 mg/dl Creatinine 1.19 mg/dl Est Creatinine Clear Calc Drug Dose 64.4 ml/min Estimated GFR () 69.8 Estimated GFR (Non- 60.2 BUN/Creatinine Ratio 14.2 Random Glucose 143 mg/dl Lactic Acid Level 1.5 mmol/L Calcium Level 8.5 mg/dl Troponin I 0.347 ng/ml 0.713 ng/ml Pro-B-Type Natriuretic Peptide 129 pg/ml Bedside Hemoglobin 10.9 g/dl Bedside Hematocrit 32 % Bedside Sodium 136 mEq/L Bedside Potassium 3.6 mEq/L Bedside Chloride 105 mEq/L Bedside Total CO2 21 mEq/l Bedside Blood Urea Nitrogen 15 mg/dl Bedside Creatinine 1.2 mg/dl Bedside Glucose (other) 152 mg/dl Bedside Ionized Calcium (Martita) 1.16 mmol/l Venous Blood pH 7.48 Venous Blood Partial Pressure CO2 31 mmHg Venous Blood Partial Pressure O2 50 mmHg Venous Blood HCO3 22 mmol/L Venous Blood Oxygen Saturation 86.2 % Venous Blood Base Excess -0.6 mEq/L Test 10/01/17 22:07 10/02/17 03:48 10/02/17 07:54 Troponin I 0.505 ng/ml 0.264 ng/ml White Blood Count 4.94 K/uL Red Blood Count 3.63 M/uL Hemoglobin 11.2 g/dL Hematocrit 30.9 % Mean Corpuscular Volume 85.1 fL Mean Corpuscular Hemoglobin 30.9 pg Mean Corpuscular Hemoglobin Concent 36.2 g/dl RDW Standard Deviation 40.2 fL RDW Coefficient of Variation 12.9 % Platelet Count 195 K/uL Mean Platelet Volume 8.9 fL Activated Partial Thromboplast Time 118.2 SECONDS Partial Thromboplastin Ratio 4.5 Sodium Level 135 mmol/L Potassium Level 3.4 mmol/L Chloride Level 107 mmol/L Carbon Dioxide Level 20 mmol/L Anion Gap 8.0 mmol/L Blood Urea Nitrogen 17 mg/dl Creatinine 1.16 mg/dl Est Creatinine Clear Calc Drug Dose 65.1 ml/min Estimated GFR () 72.0 Estimated GFR (Non- 62.1 BUN/Creatinine Ratio 14.9 Random Glucose 192 mg/dl Calcium Level 8.7 mg/dl Magnesium Level 2.1 mg/dl
--- NOTE | 2017-10-02 13:44 | Cardiology Consultation ---
Cardiology Consultation Date of Service Oct 02, 2017. Cardiology Consultation CARDIOLOGY CONSULTATION DATE OF CONSULTATION: October 02, 2017 REFERRING PHYSICIAN: Salty Ramos MD REASON FOR CONSULT: Elevated troponin. HISTORY OF PRESENT ILLNESS: 72-year-old man with history of non-Hodgkin's lymphoma (treated originally 7 years ago, on chemo for the past 6 months for recurrence), hypogammaglobulinemia (receiving immunoglobulin infusions), and asthma, but no known cardiac history, who was receiving immunoglobulin infusion when he developed rigors, dyspnea, and nonproductive cough. He was treated with Decadron, epinephrine, Tylenol, and the infusion was aborted, he was initiated on steroids. CT of the chest showed no pulmonary embolism but did show patchy infiltrate consistent with ground-glass opacities. His troponin was elevated but he denies chest pain at any time and he had no dynamic or concerning ECG changes. He had an uneventful night and feels much better. He still has a nonproductive cough, but denies any chest pain, dyspnea, or other complaints currently. He feels well presently. MEDICATIONS: He was switched from IV heparin to subcu Lovenox Famotidine aformoterol NEBS DuoNeb Aspirin 81 mg daily Zyrtec Flonase Lisinopril 20 mg daily Solu-Medrol IV ALLERGIES: No known drug allergies. Had an adverse reaction to pollen. PAST MEDICAL HISTORY: Lymphoma Hypogammaglobulinemia No known cardiac history COPD Prostatitis Hypertension PAST SURGICAL HISTORY: Apparently no major surgeries. 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 . Former smoker. FAMILY HISTORY: Father diverticulitis. Family history of Alzheimer's. REVIEW OF SYSTEMS: As per admission H&P. At recent baseline, he has been physically active with no chest pain, dyspnea on exertion. No palpitations, presyncope or syncope. No orthopnea, PND, or ankle edema. PHYSICAL EXAMINATION: No distress. Vitals: Afebrile. BP 124/63, pulse 91 regular, respirations 18 unlabored. Skin: No unusual lesions or ecchymosis. HEENT: Unremarkable. Neck: Jugular venous pulse at the clavicle at 90, no carotid bruits. Lungs: Mildly decreased breath sounds with few basilar crackles, no wheezing. No abdominal paradox, accessory muscle use, or nasal flaring. Cardiac: Regular rhythm with normal S1 and S2. No obvious murmur or gallop. Abdomen: Benign. Extremities: Nontender without edema. Intact peripheral pulses. Neurologic: Normal affect, nonfocal DATA: Initial ECG yesterday showed sinus tachycardia at 128 bpm with incomplete right bundle branch block. Subsequent ECG showed sinus rhythm at 93 ppm with resolution of the incomplete right bundle branch block and borderline prolonged QTC but otherwise unremarkable. ECG from today is pending. Labs today with hemoglobin 11.2, white count 4.94 with normal platelet count. Potassium 3.4 with otherwise normal electrolytes, BUN 17, creatinine 1.16. Troponin jojo from 0.3 to 0.7 before dropping to 0.5. Echocardiogram today showed normal left ventricular size with normal to hyperdynamic systolic function (EF 65-70 %), no regional wall motion abnormalities or significant valvular disease. Chest x-ray and CT showed ground-glass pulmonary opacities. IMPRESSION: 1. Acute reaction to immunoglobulin infusion with drug induced lung injury. 2. Transient troponin elevation due to supply/demand mismatch from acute hemodynamic stress of #1. 3. Non-Hodgkin's lymphoma. 4. Hypertension, controlled. DISCUSSION: In the absence of chest pain or ECG changes (to be confirmed with follow-up ECG today), and given unremarkable echocardiogram, suspect troponin elevation was a reflection of the acute hemodynamic stress of his acute reaction to mural globulin infusion with associated drug induced lung injury and hypoxia. As such , in the absence of prior or subsequent cardiac symptoms, no need for further cardiac workup at this time. Normotensive on his usual lisinopril. Probably will not need aspirin long-term, given his ongoing chemotherapy in the risk of anemia/thrombocytopenia. Please call if his clinical status changes or there are additional concerns. Thank you for this consultation.
[2017-10-02] MEDS: ARFORMOTEROL TART 15MCG/2ML VIAL INH SCH (19:10)
[2017-10-02] MEDS: FAMOTIDINE 20 MG TAB PO SCH (20:16)
[2017-10-02] MEDS ORDERED: ENOXAPARIN 40 MG/0.4 ML SYR SQ SCH (21:00)
[2017-10-03] VITALS (8 sets, daily range): BP systolic 110–126; BP diastolic 55–70; PULSE 59–88; TEMP 36.5–36.8; O2SAT 94–97
[2017-10-03 04:44] LABS: HEMATOCRIT 28.5 % (42-52); HEMOGLOBIN 10.3 g/dL (14.0-18.0); MEAN CELL VOLUME 86.6 fL (80-100); MEAN CORPUSCULAR HEMOGLOBIN 31.3 pg (25-34); PLATELET COUNT 182 K/uL (130-400); RED CELL DISTRIBUTION WIDTH CV 13.4 % (11.5-14.5); RED CELL DISTRIBUTION WIDTH SD 42.8 fL (36.4-46.3); WHITE BLOOD COUNT 8.88 K/uL (4.8-10.8)
[2017-10-03 04:54] LABS: PTT PATIENT 32.4 SECONDS (21.0-31.0)
[2017-10-03 05:03] LABS: MEAN CORPUSCULAR HGB CONC 36.1 g/dl (32-36)
[2017-10-03] MEDS: METHYLPREDNISOLONE IV 60 MG in SYRINGE 0 ML IV SCH ×2 (05:32→11:01)
[2017-10-03] MEDS: ARFORMOTEROL TART 15MCG/2ML VIAL INH SCH (07:06)
[2017-10-03] MEDS: ALBUT/IPRATROP 3MG/0.5MG NEB 3 ML VIAL INH SCH ×2 (07:07→11:06)
[2017-10-03] MEDS: FLUTICASONE PROPIONATE NA SPR 16 GM BTL NAE SCH (08:39)
[2017-10-03] MEDS: ASPIRIN 81 MG ECTAB PO SCH (08:39)
[2017-10-03] MEDS: FAMOTIDINE 20 MG TAB PO SCH (08:40)
[2017-10-03] MEDS: CETIRIZINE HCL 10 MG TAB PO SCH (08:40)
[2017-10-03] MEDS: LISINOPRIL 20 MG TAB PO SCH (09:03)
--- NOTE | 2017-10-03 09:56 | DIAGNOSTIC IMAGING REPORT ---
CHEST 2 VIEWS ROUTINE CLINICAL HISTORY: Pneumonia COMPARISON STUDY: 10/01/2017 FINDINGS: The cardiac and mediastinal contours remain stable. There are improving bilateral lower lobe predominant interstitial and airspace opacities. There are no pleural effusions. IMPRESSION: Improving bilateral interstitial and airspace opacities. Electronically signed by: Zi Monzon M.D. 10/03/2017 9:54 AM Dictated Date/Time: 10/03/2017 9:53 AM
[2017-10-03] MEDS ORDERED: PRD10 PO (12:15)
--- NOTE | 2017-10-03 12:17 | Discharge Instructions ---
Discharge Instructions Date of Service Oct 03, 2017. Admission Reason for Admission: Anaphylaxis, Pneumonia Discharge Discharge Diagnosis / Problem: pneumonitis, elevated troponin Discharge Goals Goal(s): Diagnostic testing, Therapeutic intervention Activity Recommendations Activity Limitations: as noted below Lifting Limitations: gradually increase as tolerated . Instructions / Follow-Up Instructions / Follow-Up Please contact Dr Amanda or your PCP for follow up in one week Please keep your regularly scheduled apt for any testing Current Hospital Diet Patient's current hospital diet: Regular Diet Discharge Diet Recommended Diet: Regular Diet Pending Studies Studies pending at discharge: no Medical Emergencies . Who to Call and When: Medical Emergencies: If at any time you feel your situation is an emergency, please call 911 immediately. . Non-Emergent Contact Non-Emergency issues call your: Primary Care Provider, Conservation Scientist Call Non-Emergent contact if: temperature is above 101, your pain is unusual for you . . "Provider Documentation" section prepared by Gavin Ramos. .
--- NOTE | 2017-10-03 14:26 | Cardiology Follow-Up ---
Cardiology Follow-Up Date of Service Oct 03, 2017. Cardiology Follow-Up SUBJECTIVE: 72-year-old man with history of non-Hodgkin's lymphoma (treated originally 7 years ago, on chemo for the past 6 months for recurrence), hypogammaglobulinemia (receiving immunoglobulin infusions), and asthma, but no known cardiac history, who was receiving immunoglobulin infusion when he developed rigors, dyspnea, and nonproductive cough. He was treated with Decadron, epinephrine, Tylenol, and the infusion was aborted, he was initiated on steroids. CT of the chest showed no pulmonary embolism but did show patchy infiltrate consistent with ground-glass opacities. His troponin was elevated but he denies chest pain at any time and he had no dynamic or concerning ECG changes. He had an uneventful night and feels well. He denies any chest pain, dyspnea, or other complaints currently. PHYSICAL EXAMINATION: No distress. Vitals: Afebrile. BP 110/55, pulse 74 regular, respirations 18 unlabored. Skin: No unusual lesions or ecchymosis. HEENT: Unremarkable. Neck: Jugular venous pulse at the clavicle at 90, no carotid bruits. Lungs: Mildly decreased breath sounds with few basilar crackles, no wheezing. No abdominal paradox, accessory muscle use, or nasal flaring. Cardiac: Regular rhythm with normal S1 and S2. No obvious murmur or gallop. Abdomen: Benign. Extremities: Nontender without edema. Intact peripheral pulses. Neurologic: Normal affect, nonfocal DATA: Monitor overnight showed sinus rhythm and was unremarkable. White count 8.8, hemoglobin 10.3, platelet a [id number]. Echocardiogram yesterday showed normal left ventricular size with normal to hyperdynamic systolic function (EF 65-70 %), no regional wall motion abnormalities or significant valvular disease. Chest x-ray and CT showed ground-glass pulmonary opacities. IMPRESSION: 1. Acute reaction to immunoglobulin infusion with drug induced lung injury. 2. Transient troponin elevation due to supply/demand mismatch from acute hemodynamic stress of #1. 3. Non-Hodgkin's lymphoma. 4. Hypertension, controlled. DISCUSSION: In the absence of chest pain or ECG changes and given unremarkable echocardiogram, suspect troponin elevation was a reflection of the acute hemodynamic stress of his acute reaction to mural globulin infusion with associated drug induced lung injury and hypoxia. As such, in the absence of prior or subsequent cardiac symptoms, no need for further cardiac workup at this time. Normotensive on his usual lisinopril. Probably will not need aspirin long-term, given his ongoing chemotherapy in the risk of anemia/thrombocytopenia. OK from cardiac standpoint for discharge home.
--- NOTE | 2017-10-03 14:27 | Discharge Summary ---
Discharge Summary Date of Service Oct 03, 2017. Discharge Summary Admission Date: Oct 01, 2017 at 14:49 Discharge Date: Oct 03, 2017 Discharge Disposition: Home Principal Diagnosis: imunoglobulin infusion reaction, pneumonitis, elevated troponin Immunizations: Have You Had Influenza Vaccine: Yes History of Tetanus Vaccine?: Yes Tetanus Immunization Date: Apr 03, 2010 History of Pneumococcal: Yes History of Hepatitis B Vaccine: No Procedures: ECHO:The left ventricle is normal in structure and function. The left ventricular wall motion is normal. Ejection Fraction = 65-70%. Grade I diastolic dysfunction, (abnormal relaxation pattern). Consultations: Cardiology and pulmonary medicine Discharge Exam Review of Systems: Constitutional: No fever, No chills, No sweats Respiratory: + cough, No sputum, No shortness of breath, No dyspnea on exertion Cardiovascular: No chest pain, No orthopnea Physical Exam: General Appearance: WD/WN, no apparent distress Respiratory/Chest: chest non-tender, lungs clear, normal breath sounds Cardiovascular: regular rate, rhythm, no murmur Abdomen / GI: normal bowel sounds, non tender, soft Neurologic/Psychiatric: alert, oriented x 3 Hospital Course 72 y/o M Hx HTN, TIA, follicular lymphoma - currently receiving chemotherapy, hypogammaglobulinemia as a result of chemo. 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 He developed rigors, SOB and was notably hypoxic with a saturation in the mid 70s. He was transported to the hospital therefore and treated for an acute reaction, receiving Epi and Benadryl. He had received Solumedrol and Demerol at the hematology office prior to arrival. The pt has improved with the aforementioned modalities and is comfortable with supplemental 02 at the time of admission. A CTA was obtained in the ER revealing extensive multifocal ground glass opacities which may represent pneumonia, pulmonary edema and drug reaction. He has not reported a productive cough or fever and does not have a history of CHF. Acute hypoxia, rigors - without fever - likely a reaction to gammaglobulin infusion which he states he has had in the past. HE has improved and repeat CXR also improved will be home on steroid taper, evaluated by pulmonary due to his CT findings did not recommend further antibiotics or intervention, will have follow up as outpt as possible bronchoscopy in the next few weeks Elevated trop - demand ischemia secondary to hypoxia. no troponin trend, cardiology does not feel this is ACS, and no plans for risk stratification testing Lymphoma - will cont chemo as outpt HTN - cont Lisinopril Total Time Spent: Greater than 30 minutes This includes examination of the patient, discharge planning, medication reconciliation, and communication with other providers. Discharge Instructions Please refer to the electronic Patient Visit Report (Discharge Instructions) for additional information.
== END 2017-10-03 13:45 | disposition home or self-care (01) | DRG 915 ==
LOC: EDSEX 10:55 → EDBD 10:55 → C.EDC 10:56 → C.2T 14:49 → ENRESERV 14:56
PROVIDERS: ADMIT Internal Medicine; ATTEND Internal Medicine
DX: T78.40XA Allergy, unspecified, initial encounter (principal); J18.9 Pneumonia, unspecified organism; C83.30 Diffuse large B-cell lymphoma, unspecified site; I24.8 Other forms of acute ischemic heart disease; D80.1 Nonfamilial hypogammaglobulinemia; T50.Z15A Adverse effect of immunoglobulin, initial encounter; R09.02 Hypoxemia; I10 Essential (primary) hypertension; R68.89 Other general symptoms and signs; J45.909 Unspecified asthma, uncomplicated; J44.9 Chronic obstructive pulmonary disease, unspecified; Z86.73 Personal history of transient ischemic attack (TIA), and cerebral infarction without residual deficits; Z87.01 Personal history of pneumonia (recurrent); Z79.82 Long term (current) use of aspirin; Z87.891 Personal history of nicotine dependence

== ENCOUNTER → 2017-10-13 | Outpatient (CLI) | payer OTHER, BC ==
[~2017-10-13] MED LIST changes: +ALBU1.257 NEB; -AZIT250T PO; -BENZ100C18 PO; -MOXI400T2 PO; +PRD10 PO
--- NOTE | 2017-10-13 12:13 | DIAGNOSTIC IMAGING REPORT ---
PET/CT SKULL-THIGH HISTORY: Lymphoma LYMPHOMA TECHNIQUE: PET/CT was performed from the base of the skull through the pelvis following the intravenous administration of 15.4 mCi of F18-FDG. Non-contrast CT imaging was performed over the same range without breath-hold for attenuation correction of PET images and anatomic correlation, but not for primary interpretation as it is not of standard diagnostic quality. CT DOSE: COMPARISON: January 11, 2017 FINDINGS: HEAD AND NECK: Considerable improvement in the appearance of the soft tissue neck. The metabolic adenopathy on the prior study has shown near complete resolution. Minimal residual federico changes present although there has been a marked decrease in volume of federico change. Again, no significant metabolically active federico process is present at the current time. CHEST: Interval development of a metabolically active airspace opacities in both lower lung regions as well as anterior aspect of left upper lobe. These appear to relate to pulmonary inflammatory change such as due to a pneumonic or hypersensitivity type reaction rather than neoplastic change. No significant metabolically active hilar or mediastinal adenopathy. The mediastinal and hilar adenopathy previously described is shown near complete resolution with no abnormal metabolic activity characteristics. Abdomen and pelvis: Marked improvement in the adenopathy previously described within the mesenteric and retroperitoneal region. No significant residual metabolic adenopathy is identified. Physiologic activity is noted within the gastrointestinal and genitourinary tracts. Scattered colonic diverticulosis with no evidence for diverticulitis. No significant inguinal adenopathy with the previously described nodes resolved. MUSCULOSKELETAL: There is no FDG-avid or destructive bone lesion. IMPRESSION: 1. Marked improvement in the appearance of the PET scan compared to the prior study. 2. No current metabolically active adenopathy within the chest abdomen or pelvis. 3. Several small residual nodes showing a considerable improvement in maximum dimension with a decrease in federico volume by no less than 75% area 4. Patchy metabolically active airspace opacities within both lower lungs and anterior left upper lobe felt to be on the basis of an inflammatory process or potentially a hypersensitivity type reaction. It does not appear to be neoplastic in nature. The above report was generated using voice recognition software. It may contain grammatical, syntax or spelling errors. Electronically signed by: Seth Gagnon M.D. 10/13/2017 12:12 PM Dictated Date/Time: 10/13/2017 11:53 AM
== END | disposition home or self-care (01) ==
LOC: C.PET 08:22
PROVIDERS: ATTEND Physician Assistant
DX: R05 Cough (principal); R50.9 Fever, unspecified; C85.90 Non-Hodgkin lymphoma, unspecified, unspecified site

== ENCOUNTER → 2017-11-02 | Outpatient (CLI) | payer OTHER, BC ==
--- NOTE | 2017-11-02 13:08 | DIAGNOSTIC IMAGING REPORT ---
CHEST 2 VIEWS ROUTINE CLINICAL HISTORY: 72 years-old Male presenting with SOB, COUGH. TECHNIQUE: PA and lateral views of the chest were obtained. COMPARISON: 10/03/2017. FINDINGS: Atherosclerosis of the aortic arch. Cardiac silhouette top normal in size. Minimal vague perihilar opacities resulting in obscuration vascular lung markings. Mild bronchial wall thickening may be present. No focal opacity. No pleural effusion or pneumothorax. Osseous structures normal. Upper abdomen normal. IMPRESSION: 1. Minimal vague perihilar opacities and bronchial wall thickening could suggest reactive airways disease, congestive change, or viral bronchiolitis. No focal opacity to suggest pulmonary edema or pneumonia. Electronically signed by: Conor Cunningham M.D. 11/02/2017 1:07 PM Dictated Date/Time: 11/02/2017 1:05 PM
[2017-11-02 13:29] LABS: BASO % 0.5 %; BASO ABS # 0.04 K/uL (0-0.2); EOS % 2.9 %; EOS ABS # 0.22 K/uL (0-0.5); HEMATOCRIT 40.5 % (42-52); HEMOGLOBIN 13.9 g/dL (14.0-18.0); IG# 0.12 K/uL (0.00-0.02); LYMPH % 20.8 %; LYMPH ABS # 1.59 K/uL (1.2-3.4); MEAN CELL VOLUME 88.2 fL (80-100); MEAN CORPUSCULAR HEMOGLOBIN 30.3 pg (25-34); MEAN CORPUSCULAR HGB CONC 34.3 g/dl (32-36); MEAN PLATELET VOLUME 9.3 fL (7.4-10.4); MONO % 10.6 %; MONO ABS # 0.81 K/uL (0.11-0.59); NEUT % 63.6 %; NEUT ABS # 4.85 K/uL (1.4-6.5); PLATELET COUNT 234 K/uL (130-400); RED CELL DISTRIBUTION WIDTH CV 14.8 % (11.5-14.5); RED CELL DISTRIBUTION WIDTH SD 47.7 fL (36.4-46.3); WHITE BLOOD COUNT 7.63 K/uL (4.8-10.8)
[2017-11-02 13:38] LABS: PTT PATIENT 28.9 SECONDS (21.0-31.0)
[2017-11-02 14:04] LABS: ALBUMIN 3.8 gm/dl (3.4-5.0); ALT/SGPT 41 U/L (12-78); AST/SGOT 37 U/L (15-37); BLOOD UREA NITROGEN 9 mg/dl (7-18); CALCIUM 9.2 mg/dl (8.5-10.1); CARBON DIOXIDE 24 mmol/L (21-32); CREATININE 1.08 mg/dl (0.60-1.40); GLUCOSE 103 mg/dl (70-99); POTASSIUM 3.8 mmol/L (3.5-5.1); SODIUM 137 mmol/L (136-145)
[2017-11-02 14:14] LABS: ALKALINE PHOSPHATASE 99 U/L (45-117); TOTAL PROTEIN 6.9 gm/dl (6.4-8.2)
== END | disposition home or self-care (01) ==
LOC: C.RAD1850 12:30
PROVIDERS: ATTEND Physician Assistant
DX: Z00.00 Encounter for general adult medical examination without abnormal findings (principal); R05 Cough; R50.9 Fever, unspecified; J18.9 Pneumonia, unspecified organism; R00.0 Tachycardia, unspecified; R06.02 Shortness of breath

== ENCOUNTER 2017-11-08 08:28 | Day surgery (SDC) | payer OTHER, BC ==
[~2017-11-08] VITALS: Ht 177.8 cm; Wt 93.0 kg
--- NOTE | 2017-11-08 08:29 | History & Physical Bridge Note ---
H&P Re-Evaluation Bridge Note: I have examined the patient, reviewed the History & Physical and in the interval since the performance of the History & Physical I have noted the following changes of clinical significance: No changes noted
--- NOTE | 2017-11-08 08:30 | Pre Sedation Assessment ---
Pre Sedation Assessment General Date of Sedation: November 08, 2017. Pre-Sedation Airway Assessment Smoking Status: Never Smoker Mallampati Classification: Class II ASA Classification: Class II Procedure Planning Contraindications for Sedation: None Current Medications Reviewed: Yes Notes The planned sedation has been discussed with the patient. Informed Consent was obtained. I have identified the patient, determined the appropriateness of sedation and have assessed the patient immediately prior to the procedure. All medicine(s) and interventions are by my order.
[2017-11-08] MEDS ORDERED: IBUP1TAB (09:02)
[2017-11-08] MEDS ORDERED: DIPH1TAB87 (09:02)
[2017-11-08 09:06] VITALS: BP 154/80; PULSE 82; TEMP 37.2; O2SAT 95; Ht 177.8 cm; Wt 93.0 kg
[2017-11-08] MEDS ORDERED: LIDOCAINE 4% INH SOLN 4 ML BTL INH ONE (10:10)
[2017-11-08] MEDS ORDERED: OXYMETAZOLINE HCL 0.05% NA SPR 15 ML BTL ONE (10:10)
[2017-11-08] MEDS ORDERED: FENTANYL CITRATE INJ 50 MCG/1 ML 2 ML VIAL IV ONE (10:33)
[2017-11-08] MEDS ORDERED: MIDAZOLAM HCL 5 MG/ML 1 ML VIAL IV ONE (10:33)
[2017-11-08] MEDS ORDERED: LIDOCAINE HCL 2% LOCAL 50ML VIAL INSTIL ONE (10:33)
[2017-11-08] MEDS ORDERED: LEVALBUTEROL 1.25MG/3ML NEB INH ONE (10:38)
--- NOTE | 2017-11-08 10:55 | [facility] Operative Report ---
Operative Report Operative Date November 08, 2017. Pre-Operative Diagnosis chronic mucopurulent bronchitis Post-Operative Diagnosis chronic mucopurulent bronchitis Procedure(s) Performed Bronchoscopy Surgeon Dr. Amanad Clinical Sciences Professor Surgeon(s) Dr. Amanda Estimated Blood Loss 0 Findings Tracheomalacia/Chronic Mucopurulent Bronchitis Specimens right mainstem washing Complication(s) None Disposition I attest to the content of the Intraoperative Record and any orders documented therein. Any exceptions are noted below.
--- NOTE | 2017-11-08 10:55 | Post Sedation Assessment ---
Post Sedation Assessment General Date of Sedation November 08, 2017. Vital Signs: Vital Signs Past 12 Hours Date Time Temp Pulse Resp B/P (MAP) Pulse Ox O2 Delivery O2 Flow Rate FiO2 11/08/17 10:50 84 24 133/73 94 Nasal Cannula 4 11/08/17 10:45 90 24 145/64 92 Nasal Cannula 4 11/08/17 10:40 86 20 133/71 93 Nasal Cannula 4 11/08/17 10:35 89 20 156/71 99 Oxymask 15 11/08/17 10:30 112 20 192/101 96 Oxymask 15 11/08/17 10:25 85 16 156/100 95 Oxymask 6 11/08/17 10:20 83 18 170/97 98 Oxymask 6 11/08/17 10:15 86 16 183/99 100 Oxymask 6 11/08/17 09:06 37.2 82 18 154/80 (104) 95 Room Air Post Procedure Recovery Score Activity: (2) Moves 4 extremities * Respiration: (2) Deep breath/cough Circulation: (1) +/-20-49% PreAnes Lisa Consciousness: (2) Fully Awake Oxygen Saturation: (1) O2 needed for >90% Post Anesthesia Score: 8 Discharge Sedation Level of Care: Fast Track Phase II Post Sedation Plan On clinical assessment, the patient appears to have tolerated the sedation without complications. Patient is recovering as anticipated. Patient will continue to be monitored by nursing and may be discharged when sedation discharge criteria are met per below protocol. Upon Completions of procedure and additional 15 minutes continue every 5 minute vital signs and the P.A.R. score; then discharge to a Phase I or Fast Track to Phase II per the following guidelines: * Discharge Patient to appropriate Phase II area if PAR is 8 or greater or return to pre- procedure baseline. The post - procedure orders will be as directed. * If PAR score is less than 8 or not return to pre-procedure baseline then patient will follow Phase I monitoring till PAR is reached for Phase II. The Phase I may be done in procedure room or may call to secure a Phase I area. * If naloxone or flumazenil are used for reversal, hold in Phase I for an additional 60 -120 minutes before discharge to Phase II. Please call the Sedation Physician to re-evaluate and complete post-note for discharge to Phase II area. Do NOT discharge from procedure sedation or Phase 1 until post- sedation evaluation note is complete by procedure /sedation MD Sedation Discharge Instructions to be given to the patient at discharge to home.
[2017-11-08 10:58] VITALS: BP 126/66; PULSE 90; TEMP 37.1; O2SAT 99
--- NOTE | 2017-11-08 10:58 | Discharge Instructions ---
Discharge Instructions Date of Service November 08, 2017. Admission Reason for Admission: Cough, Fevers Discharge Discharge Diagnosis / Problem: Tracheomalacia/Chronic Mucopurulent Bronchitis Discharge Goals Goal(s): Diagnostic testing Activity Recommendations Activity Limitations: resume your previous activity Lifting Limitations: none Exercise/Sports Limitations: none May Resume Sexual Activity: when tolerated Shower/Bathe: no limitations Driving or Machine Use: no limitations none . Instructions / Follow-Up Instructions / Follow-Up ACTIVITY RECOMMENDATIONS: * Rest today, resume normal activity tomorrow. * Do not drive today. SPECIAL CARE INSTRUCTIONS: * Call your physician if you experience any chest or shoulder pain, fever, coughing, spitting up blood (more than 2 teaspoons) or excessive shortness of breath. * Remove dressing from IV site (where needle was placed into the vein) after 2 hours. Apply a warm, moist compress to site if irritation occurs. Call physician if site becomes red or painful to touch. FOLLOW UP VISIT: * Keep any scheduled doctor appointments. Current Hospital Diet Patient's current hospital diet: regular Discharge Diet Recommended Diet: Regular Diet Fluid Restriction: None Procedures Procedures Performed: Bronchoscopy Pending Studies Studies pending at discharge: no Medical Emergencies . Who to Call and When: Medical Emergencies: If at any time you feel your situation is an emergency, please call 911 immediately. . Non-Emergent Contact Non-Emergency issues call your: Belt Back Operator . . "Provider Documentation" section prepared by Terence Amanda. .
[2017-11-08] MEDS ORDERED: DEXTROSE 5% 1000ML 1,000 ML IV SCH (11:15)
[2017-11-08] MEDS ORDERED: NURSING VERBAL MED ORDER ONE (11:15)
[2017-11-08 11:18] VITALS: BP 129/63; PULSE 82; TEMP 36.6; O2SAT 97
[2017-11-08 11:50] VITALS: BP 128/74; PULSE 78; TEMP 36.8; O2SAT 97
[2017-11-08 12:30] VITALS: PULSE 73; TEMP 37.1; O2SAT 95
[2017-11-08 13:03] VITALS: BP 149/79; PULSE 81; TEMP 36.8; O2SAT 95
--- NOTE | 2017-11-08 15:05 | OPERATIVE REPORT ---
DATE OF OPERATION: 11/08/2017 REASON FOR BRONCHOSCOPY: The patient has history of lymphoma with abnormal CT scan of the chest and persistent symptomatology and refractory to outpatient therapy. ANESTHESIA PREOPERATIVELY: None. ANESTHESIA DURING PROCEDURE: 5 mg IV Versed, 50 mcg IV fentanyl, 20 mL 2% Xylocaine spray above and below the cords, 4% viscous Xylocaine intranasally. DESCRIPTION OF PROCEDURE: Fiberoptic bronchoscope was inserted through left naris with minimal difficulty and passed to the level of the true vocal cords. The cords were visualized. The left vocal cord appeared to be atrophic and was not as mobile as the right vocal cord in my opinion. There was area of oral candidiasis visible with whitish plaques adherent to the mucosa overlying the arytenoid cartilages and the piriform sinuses. The cords were anesthetized. The scope was passed to the trachea and immediately visible was significant tracheomalacia involving the [id number] portion of the trachea. Thick mucoviscous secretion was adherent to the posterior wall of the trachea, which was lavaged until clear. The scope was then introduced to the level of the lucio, which was sharp and then the right and left tracheobronchial tree. The right main stem bronchus was explored initially and copious mucoviscous secretion was lavaged from right main stem bronchus until clear. The right upper lobe, the apical-posterior and anterior segments, bronchus intermedius, right middle lobe and the medial and lateral segments and all basilar segments showed a fair amount of mucoviscous secretion that was lavaged until clear. Left tracheobronchial tree was explored and similar findings were noted with thick secretions throughout the left tracheobronchial tree. Left upper lobe, lingual subdivision and left lower lobe were free of endobronchial lesions, but the mucosa was extremely hemorrhagic when lavaged. I could not discern an endobronchial lesion and no biopsies or brushings were attempted. The patient did become hypoxemic during the procedure and the scope was withdrawn. After several minutes, the patient's vital signs returned to normal and the scope was reintroduced via the similar route and at termination of procedure, the patient became mildly hypoxemic, but exhibited no signs of respiratory distress. A nebulizer treatment with Xopenex was administered at 1.25 mg and the patient was transferred to the medical treatment unit hemodynamically stable with no signs of respiratory compromise. We will await microbiological and cytologic examination of the bronchial washings. I attest to the content of the Intraoperative Record and any orders documented therein. Any exception s are noted below.
== END 2017-11-08 13:03 | disposition home or self-care (01) ==
LOC: C.ACU 08:28
PROVIDERS: ATTEND Internal Medicine Pulmonary Disease
DX: J41.1 Mucopurulent chronic bronchitis (principal); R91.8 Other nonspecific abnormal finding of lung field; C82.90 Follicular lymphoma, unspecified, unspecified site; I10 Essential (primary) hypertension; Z86.73 Personal history of transient ischemic attack (TIA), and cerebral infarction without residual deficits; Z87.891 Personal history of nicotine dependence; Z79.82 Long term (current) use of aspirin; Z79.899 Other long term (current) drug therapy